=== PATIENT | female | born 1935 | race Caucasian/White ===

== ENCOUNTER 2021-01-10 17:57 | Emergency (ER) | payer OTHER, SELFPAY ==
--- NOTE | 2021-01-10 | ECG_ITS ---
Test Reason : PALPITAIONS Blood Pressure : / mmHG Vent. Rate : 063 BPM Atrial Rate : 063 BPM P-R Int : 190 ms QRS Dur : 080 ms QT Int : 444 ms P-R-T Axes : 077 -14 063 degrees QTc Int : 454 ms Sinus rhythm with Premature supraventricular complexes Biventricular hypertrophy RSR' or QR pattern in V1 suggests right ventricular conduction delay Abnormal ECG No previous ECGs available Referred By: Generic ED Physician Electronically Signed By:LONNIE LOCO MD
--- NOTE | ~2021-01-10 | XR_ITS ---
EXAMINATION: XR CHEST CLINICAL INFORMATION: Shortness of breath. COMPARISON: None TECHNIQUE: AP view of the chest was obtained. FINDINGS: Mild cardiomegaly. Clear lungs. No focal consolidation, pleural effusion or pneumothorax. No acute osseous findings. XR/XR chest 1V IMPRESSION: Clear lungs. Mild cardiomegaly.
[2021-01-10 18:25] VITALS: BP 139/75; PULSE 69; RESP 18; TEMP 36.8; O2SAT 94; BMI 17.9
[2021-01-10 19:50] LABS: Basophils Percent Auto 0.5 % (0-2); Eosinophils Absolute Auto 0.1 X10*3/uL (0.0-0.4); Eosinophils Percent Auto 1.7 % (0-4); Hematocrit 39.5 % (37-47); Hemoglobin 13.4 g/dl (12.0-16.0); Imm Gran Abs Auto 0.01 X10*3/uL (0.00-0.03); Imm Gran Pct Auto 0.2 % (0.0-0.4); Lymphocytes Absolute Auto 1.5 X10*3/uL (1.2-4.9); MANUAL DIFF FLAG SCAN; Mean Corpuscular HGB Conc 33.9 g/dl (31.0-35.0); Mean Corpuscular Hemoglobin 30.8 pg (27.0-33.0); Mean Corpuscular Volume 90.8 fL (80-98); Monocytes Percent Auto 23.2 % (2-11); Neutrophils Absolute Auto 1.6 X10*3/uL (2.0-8.3); Neutrophils Percent Auto 39.4 % (45-73); Platelet Count 180 X10*3/uL (160-400); Red Blood Count 4.35 X10*6/uL (4.20-5.50); Red Cell Distribution Width 12.6 % (11.0-16.0); SCAN SMEAR FLAG 1; White Blood Count 4.1 X10*3/uL (4.8-10.8)
[2021-01-10 20:04] LABS: Anion Gap 13 (12-20); Blood Urea Nitrogen 25 mg/dL (9-16); Calcium 9.3 mg/dL (8.4-10.2); Carbon Dioxide 28 mmol/L (22-29); Chloride 106 mmol/L (96-108); Creatinine Clr Calc Pharmacy 34.3; Estimated Glomerular Filt Rate > 60; Glucose Random 92 mg/dL (60-115); Sodium 143 mmol/L (135-145)
[2021-01-10 20:09] LABS: Troponin-I High Sensitivity 5.3 ng/L (<3.5-17.0)
[2021-01-10 20:13] LABS: SLIDE REVIEW VERIFIED
[2021-01-10 23:34] LABS: B Type Natriuretic Peptide 41 pg/mL (<100)
--- NOTE | 2021-01-10 23:35 | ED.ARRPALP ---
HPI - Arrhythmia/Palpitations General Chief Complaint: Arrhythmia/Palpitations Stated Complaint: Abnormal heart monitor Time Seen by Provider: 01/10/21 23:03 Source: patient and family (Daughter) Mode of arrival: ambulatory History of Present Illness HPI narrative: This is an 85-year-old female with significant past medical history of short-term memory loss who is brought in by her daughter after she was contacted by patient's primary care provider who stated that she needs to bring her mother in immediately for evaluation in the emergency room. Daughter states that on initial PCP visit on Wednesday that there were unknown concerns regarding her mother's heart rate and the PCP placed her on a heart monitor. Otherwise, the patient and daughter deny any recent illnesses with fevers, chills, GI symptoms and patient denies any urinary pain/burning/frequency. Patient currently denies any chest pain, racing heart, or shortness of breath. Related Data Home Medications Medication Instructions Recorded Confirmed cholecalciferol (vitamin D3) 25 25 mcg PO DAILY 04/11/20 04/11/20 mcg (1,000 unit) capsule Previous Rx's Medication Instructions Recorded lisinopril 20 1 tab PO DAILY PRN #90 tab 03/11/20 mg-hydrochlorothiazide 12.5 mg tablet Allergies Allergy/AdvReac Type Severity Reaction Status Date / Time Sulfa (Sulfonamide Allergy Unknown Verified 01/10/21 18:25 Antibiotics) Review of Systems Review of Systems: Pertinent positives and negatives as stated in HPI 10 point review of systems is otherwise negative. [facility] Past Medical History Source: nursing notes reviewed Medical History Abnormal EKG Abnormal Holter monitor finding Cognitive decline Hypertension Surgical History History of mastectomy Family History Family History Father No problems noted. Mother No problems noted. Social History Social History Alcohol intake: never Advance Directives: No Physical Exam Vital Signs: Vital Signs: Last Vital Signs Temp 98.2 F 01/10/21 18:25 Pulse 69 01/10/21 18:25 Resp 18 01/10/21 18:25 BP 139/75 01/10/21 18:25 Pulse Ox 94 01/10/21 18:25 Body Mass Index 17.9 VITAL SIGNS: Reviewed. GENERAL: Cachectic, elderly, in no acute distress. HEAD: Normocephalic/atraumatic EYES: PERRLA, EOMI intact without pain, no nystagmus OROPHARYNX: no oral lesions noted, posterior pharynx clear, dry mucosa NECK: Supple, no adenopathy LUNGS: Normal breath sounds. No adventitious sounds or accessory muscle use. SpO2<94> CARDIOVASCULAR: Regular rate and rhythm without noted murmurs, no JVD or lower extremity edema. ABDOMEN: Soft, non-tender, non-distended with bowel sounds. MUSCULOSKELETAL: No tenderness, deformities, or effusions noted on gross inspection. EXTREMITIES: No cyanosis, clubbing or edema. SKIN: Inspection of the skin reveals no rashes NEUROLOGIC: Alert and oriented x 3. Strength and sensation to light touch were grossly intact x 4. Course Course Course Narrative: 85-year-old female with history and clinical presentation apparently secondary to noted cardiac rhythm on Holter monitor. Patient is otherwise asymptomatic at this time but will evaluate for electrolyte/infectious/anemic or presence of arrhythmia. There are no focal findings. Review of all investigations negative for evidence of electrolyte abnormalities, infection, anemia, BMP is within normal limits and troponin although detectable does not correlate with EKG findings and patient is asymptomatic for chest pain. All results and findings were discussed with the daughter and patient at bedside and they were instructed to follow-up with their primary care provider and were also given a referral to see Cardiology. MDM - Arrhythmia/Palpitations Lab Data Result diagrams: 01/10/21 19:38 01/10/21 19:38 Labs: Lab Results 01/10/21 01/10/21 01/10/21 Range/Units 19:38 19:38 19:38 WBC 4.1 L (4.8-10.8) X10*3/uL RBC 4.35 (4.20-5.50) X10*6/uL Hgb 13.4 (12.0-16.0) g/dl Hct 39.5 (37-47) % MCV 90.8 (80-98) fL MCH 30.8 (27.0-33.0) pg MCHC 33.9 (31.0-35.0) g/dl RDW 12.6 (11.0-16.0) % Plt Count 180 (160-400) X10*3/uL MPV 10.0 (9.4-12.3) fL Immature Gran % (Auto) 0.2 (0.0-0.4) % Neut % (Auto) 39.4 L (45-73) % Lymph % (Auto) 35.0 (20-40) % [place] % (Auto) 23.2 H (2-11) % Eos % (Auto) 1.7 (0-4) % Baso % (Auto) 0.5 (0-2) % Lymph # (Auto) 1.5 (1.2-4.9) X10*3/uL [place] # (Auto) 1.0 (0.1-1.2) X10*3/uL Eos # (Auto) 0.1 (0.0-0.4) X10*3/uL Baso # (Auto) 0.0 (0.0-0.2) X10*3/uL Abs Immat Gran (auto) 0.01 (0.00-0.03) X10*3/uL Absolute Neuts (auto) 1.6 L (2.0-8.3) X10*3/uL Absolute Nucleated RBC 0.000 (0.0-0.012) X10*3/uL Nucleated RBC % (auto) 0.0 (0.0-0.2) /100WBC Smear Tech's Comments VERIFIED Sodium 143 (135-145) mmol/L Potassium 4.0 (3.3-5.1) mmol/L Chloride 106 (96-108) mmol/L Carbon Dioxide 28 (22-29) mmol/L Anion Gap 13 (12-20) BUN 25 H (9-16) mg/dL Creatinine 0.87 (0.5-1.4) mg/dL Estim Creat Clear Calc 34.3 Estimated GFR > 60 Random Glucose 92 (60-115) mg/dL Calcium 9.3 (8.4-10.2) mg/dL Troponin I High Sens 5.3 (<3.5-17.0) ng/L B-Natriuretic Peptide 41 (<100) pg/mL Urine Color Urine Appearance Urine pH (5.0-8.0) Ur Specific [place] (1.005-1.025) Urine Protein (NEG-TRACE) MG/DL Urine Glucose (UA) (NEG) MG/DL Urine Ketones (NEG) MG/DL Urine Blood (NEG) Urine Nitrite (NEG) Ur Leukocyte Esterase (NEG) Urine RBC (0) /HPF Urine WBC (0-4) /HPF Ur Squamous Epith Cells /LPF Urine Bacteria /LPF Hyaline Casts /LPF Urine Mucus /LPF 01/11/21 Range/Units 00:27 WBC (4.8-10.8) X10*3/uL RBC (4.20-5.50) X10*6/uL Hgb (12.0-16.0) g/dl Hct (37-47) % MCV (80-98) fL MCH (27.0-33.0) pg MCHC (31.0-35.0) g/dl RDW (11.0-16.0) % Plt Count (160-400) X10*3/uL MPV (9.4-12.3) fL Immature Gran % (Auto) (0.0-0.4) % Neut % (Auto) (45-73) % Lymph % (Auto) (20-40) % [place] % (Auto) (2-11) % Eos % (Auto) (0-4) % Baso % (Auto) (0-2) % Lymph # (Auto) (1.2-4.9) X10*3/uL [place] # (Auto) (0.1-1.2) X10*3/uL Eos # (Auto) (0.0-0.4) X10*3/uL Baso # (Auto) (0.0-0.2) X10*3/uL Abs Immat Gran (auto) (0.00-0.03) X10*3/uL Absolute Neuts (auto) (2.0-8.3) X10*3/uL Absolute Nucleated RBC (0.0-0.012) X10*3/uL Nucleated RBC % (auto) (0.0-0.2) /100WBC Smear Tech's Comments Sodium (135-145) mmol/L Potassium (3.3-5.1) mmol/L Chloride (96-108) mmol/L Carbon Dioxide (22-29) mmol/L Anion Gap (12-20) BUN (9-16) mg/dL Creatinine (0.5-1.4) mg/dL Estim Creat Clear Calc Estimated GFR Random Glucose (60-115) mg/dL Calcium (8.4-10.2) mg/dL Troponin I High Sens (<3.5-17.0) ng/L B-Natriuretic Peptide (<100) pg/mL Urine Color YELLOW Urine Appearance CLEAR Urine pH 6.0 (5.0-8.0) Ur Specific [place] 1.025 (1.005-1.025) Urine Protein TRACE (NEG-TRACE) MG/DL Urine Glucose (UA) NEG (NEG) MG/DL Urine Ketones NEG (NEG) MG/DL Urine Blood 1+ H (NEG) Urine Nitrite NEG (NEG) Ur Leukocyte Esterase NEG (NEG) Urine RBC 1-4 (0) /HPF Urine WBC 0-2 (0-4) /HPF Ur Squamous Epith Cells 1+ /LPF Urine Bacteria NONE /LPF Hyaline Casts 0-2 /LPF Urine Mucus 2+ /LPF ECG Data Attestation: I personally reviewed and interpreted this ECG as follows: Prior ECG tracings: not available for review Interpretation: Sinus rhythm, heart rate-63, no STEMI, CA/QRS/QTC are within normal limits. Discharge Plan Discharge Clinical Impression: Holter monitor, abnormal, Memory loss, short term Patient Disposition: Home, Self-Care Instructions: Heart Palpitations (ED) Additional Instructions: 1. Please follow-up with your primary care provider on Wednesday. 2. You have been provided with a Cardiology referral and should call the office on Wednesday. Prescriptions: No Action lisinopril-hydrochlorothiazide 20-12.5 mg tablet 1 tab PO DAILY PRN (Reason: hypertension) Qty: 90 RF: 8 cholecalciferol (vitamin D3) 25 mcg (1,000 unit) capsule 25 mcg PO DAILY RF: 0 Referrals: Emelina Castrejon DO [Primary Care Provider] - 2 days Mendoza Saenz MD [Physician] - 2 days (Patient currently being evaluated on Holter monitor for abnormal beats, evaluated in the ER without acute findings and patient currently under the care of Francoise Castrejon.)
[2021-01-11 00:37] LABS: Appearance Urine CLEAR; Color Urine YELLOW; Glucose Urine UA NEG (NEG); Leukocyte Esterase Urine NEG (NEG); Nitrite Urine NEG (NEG); Specific Gravity - Urine 1.025 (1.005-1.025); UACC Culture Trigger NO; Urine Blood 1+ (NEG); Urine Ketones NEG (NEG); Urine Protein TRACE MG/DL (NEG-TRACE)
[2021-01-11 00:49] LABS: Hyaline Casts Urine 0-2 /LPF; Mucus Urine 2+ /LPF; Squamous Epithelial Cell Urine 1+ /LPF; WBC Urine 0-2 /HPF (0-4)
[2021-01-11 01:18] VITALS: BP 133/58; PULSE 61; RESP 16; TEMP 36.6; O2SAT 99
== END 2021-01-11 01:21 | disposition home or self-care (01) ==
PROVIDERS: Emergency Provider Student in an Organized Health Care Education/Training Program; PCP Family Medicine
DX: R00.2 Palpitations (principal); I49.9 Cardiac arrhythmia, unspecified; R06.02 Shortness of breath; R41.3 Other amnesia; Z79.899 Other long term (current) drug therapy
CPT/HCPCS: 36415; 71045; 80048; 81001; 83880; 84484; 85025; 93005; 99284

== ENCOUNTER → 2021-01-22 09:54 | Outpatient (BNVA) | payer OTHER, SELFPAY | PROVIDERS: PCP Family Medicine; Referring Provider Family Medicine; Visit Provider Internal Medicine Cardiovascular Disease ==

== ENCOUNTER → 2021-02-19 10:57 | Outpatient (REF) | payer OTHER, SELFPAY ==
--- NOTE | 2021-02-19 11:17 | HM_ITS ---
Conclusion: 1. Patient was monitored for total period of 3 days and 6 hours 2. Baseline of normal sinus rhythm with average heart of 73 beats per minute with lowest heart rate of 45 beats per minute sinus bradycardia 3. No significant pauses noted 4. Frequent supraventricular episodes noted with longest episode of SVT lasting 1 minute and 13 seconds. 5. Total of 26,442 PVCs noted accounting for 8.77%, cardiac for frequent PVCs 6. Total of 8218 PACs noted accounting for 2.73% accounting for frequent PACs 7. Patient reported no events MTDD
== END ==
LOC: HO.CARD 10:57
PROVIDERS: Absent Provider Family Medicine; PCP Family Medicine; Visit Provider Internal Medicine Cardiovascular Disease
DX: I49.8 Other specified cardiac arrhythmias (principal); R79.89 Other specified abnormal findings of blood chemistry
CPT/HCPCS: 36415; 84443; 93242

== ENCOUNTER → 2021-03-06 09:18 | Outpatient (REF) | payer OTHER, SELFPAY ==
--- NOTE | 2021-03-06 09:22 | CA_ITS ---
Transthoracic Echocardiogram Patient (Last, First, Middle): Shona Plasencia, Gender: Female Date of : 1935 Age: 86 Procedure Date: 03/06/2021 Procedure Type: Transthoracic Echocardiogram Location: OP Height: 157.48 cm Weight: 49.9 kg BSA: 1.48 m2 Heart Rate: bpm BP: 130 / 80 mmHg Pitching Coach: REAGAN Referring MD: Mendoza Saenz MD Statement Distribution Clerk: Mendoza Saenz MD Symptoms: I49.8 - Other specified cardiac arrhythmias Study Quality: Good ECG Rhythm: Sinus Conclusions: - 1. Normal LV systolic function with impaired relaxation filling pattern 2. Mild aortic regurgitation 3. Normal RV systolic pressure 4. Mildly dilated ascending aortic root 5. No pericardial effusion Findings Left Ventricle Normal left ventricular size, thickness, and systolic function. The visually estimated ejection fraction is between 60-65%. Spectral Doppler is indicative of an impaired relaxation filling pattern. E/E prime ratio is between 8 and 15 consistent with indeterminate filling pressures. Right Ventricle Normal right ventricular cavity size and systolic function. Atria Both atria are normal in size. Interatrial shunt cannot be excluded. Aortic Valve There is mild calcification of the aortic valve. There is mild thickening of the aortic valve. There is no aortic valve stenosis. There is mild aortic valve regurgitation. Mitral Valve There is mild anterior and posterior mitral leaflet thickening. There is trace mitral valve regurgitation. There is no mitral valve stenosis. Pulmonic Valve The pulmonic valve was not well visualized. Tricuspid Valve Likely normal tricuspid valve structure and function. There is trace tricuspid valve regurgitation. The right ventricular systolic pressure is normal. The right ventricular systolic pressure is 21 mmHg. Normal right atrial pressure. There is no evidence of pulmonary hypertension. Great Vessels The pulmonary artery was not well visualized. There is mild dilatation of the sinuses of Valsalva measuring 4.00 cm. Venous The inferior vena cava is collapsed, consistent with reduced intravascular volume. Inferior vena cava flow is normal. Pericardium/Pleural There is no evidence of pericardial effusion. Prior Study Comparison No prior study available for comparison. Measurements 2D Linear Measurements IVSd: 0.74 0.6-0.9/0.6-1.0 cm LVIDd: 4.44 3.9-5.3/4.2-5.9 cm LVIDd Index: 3.00 2.4-3.2/2.2-3.1 cm/m2 LVIDs: 2.75 2.0-3.6 cm LVPWd: 0.67 0.7-1.1 cm Ao Root: 4.00 2.1-3.5 cm LA Diam: 2.90 2.7-3.8/3.0-4.0 cm LAIDs Index: 1.96 1.5-2.3 cm/m2 LV Mass: 117.29 67-162/88-224 g LV Mass Index: 79.25 43-95/49-115 g/m2 LVOT Diam: 2.30 3.0+(-)1.3 cm 2D Systolic Function EF 4C: 55.20 >55% EF 2C: 61.80 >55% EF BiP: 60.60 >55% Mitral Valve MV Pk E: 0.67 MV PK A: 0.80 MV Decel Time: 247.00 E/A: 0.80 E'Lateral: 8.05 E'Medial: 6.09 E/E' Med: 11.00 E/E' Lat: 8.30 PHT: 72.00 MVA PHT: 3.06 Decel [place]: 2.73 Aortic Valve AoV Pk Ab: 1.18 AoV Mn Ab: 0.90 AoV VTI: 0.29 AoV Pk Grad: 6.00 Aov Mn Grad: 3.00 TYLER Cont.VTI: 2.94 AI Pk Ab: 4.42 AI [place]: 1.90 LVOT LVOT Pk Ab: 0.86 LVOT Mn Ab: 0.56 LVOT VTI: 0.21 LVOT Pk Grad: 3.00 LVOT Mn Grad: 1.00 LVOT Diam: 2.30 LVOT Area: 4.15 Diastolic Function MV Pk E: 0.67 MV Pk A: 0.80 E/A: 0.80 E'Medial: 6.09 E/E' Med: 11.00 E' Laterial: 8.05 E/E' Lat: 8.30 Right Ventricle TAPSE (mm): 1.96 TVS' Ab: 9.68 Tricuspid Valve TR Pk Ab: 2.15 TR Pk Grad: 18.00 RA Press: 3.00 RVSP: 21.00 Great Vessels Aorta Ao Root-2D: 4.00 2.0-3.7 cm Sinus of Valsalva: 4.00 2.0-3.5 cm Ao Asc: 3.40 2.1-3.4 cm Updated in Other Vendor System with Status of Final Mendoza Saenz MD electronically signed on 03/06/2021 12:41:23 PM with status of Final
== END ==
LOC: HO.CARD 09:18
PROVIDERS: PCP Family Medicine; Visit Provider Internal Medicine Cardiovascular Disease
DX: I49.8 Other specified cardiac arrhythmias (principal)
CPT/HCPCS: 93306

== ENCOUNTER 2021-05-12 09:16 | Day surgery (SDC) | payer OTHER, SELFPAY ==
[2021-05-05 15:03] VITALS: BMI 18.3
--- NOTE | 2021-05-08 16:34 | MHC.SHP ---
Pre-Procedural Eval Section A Date of Service: 05/08/21 The patient is an INPATIENT: No Changes since office visit: No Cold of Flu in the past 2 weeks, No New Medical Problems, No Changes in Medication and No Patient answered all questions The History & Physical has been completed within 30 days and I have reviewed it.: Yes Section B Chief Complaint: cataract Allergies: Allergies Allergy/AdvReac Type Severity Reaction Status Date / Time Sulfa (Sulfonamide Allergy Unknown Verified 01/10/21 18:25 Antibiotics) Plan Diagnosis/Plan: Unchanged I have reviewed the history and physical and performed a pertinent physical examination on my patient. No changes have occurred unless specified.
--- NOTE | 2021-05-09 09:18 | P.CONAN_ITS ---
Documented by User: Gretta Johnson NP 05/09/21 09:22 HPI - Anesthesia Eval Consult details Narrative: 86yo F for Right Cataract Extraction IOL Insertion PCP cleared No previous cataract on record 12/2020 started on toprol by cardiol for atrial arrhythmia PMF Active Problems Active Problems: All Active Problems (Updated 05/05/21 @ 15:03 by Christina Craven RN) Cognitive decline (Acute) Atrial arrhythmia (Acute) Hypertension (Acute) Cognitive decline (Acute) Past Medical History Medical History (Updated 05/12/21 @ 11:56 by Lety Weber MD) Abnormal EKG Abnormal Holter monitor finding Arthritis Breast cancer Cognitive decline COVID-19 vaccine series completed Hypertension Short-term memory loss Family History Family History Father No problems noted. Mother No problems noted. Surgical History Surgical History (Updated 05/05/21 @ 14:37 by Christina Craven RN) H/O colonoscopy History of mastectomy Social History Social History Household Members Other:: son Are you a primary client care representative to a significant other at home: No Do you presently have visiting nurse or other home services: No Alcohol intake: never Patient Tobacco Use Status: Former Tobacco user Quit Date: quit many years ago per son Tobacco use type: Cigarette Use of substances other than those prescribed or required for medical reasons: No Have you been hit, kicked, punched, or otherwise hurt by someone within the past year? If so, by whom?: No Are you DNR?: No Advance Directives: No Advance Directives Information Provided: Yes Advance Directives on File: No Recently lost weight without trying: No Eating poorly because of decreased appetite: No Nutrition Risks: Surgical patient >75years Poor oral hygiene: No (has lower partial per son) Meds Allergies Allergy/AdvReac Type Severity Reaction Status Date / Time Sulfa (Sulfonamide Allergy Unknown Verified 01/10/21 18:25 Antibiotics) Home Medications Medication Instructions Recorded Confirmed Last Taken Type cholecalciferol (vitamin D3) 25 25 mcg PO DAILY 04/11/20 05/05/21 Unknown History mcg (1,000 unit) capsule Exam Exam Date and Time: May 09, 2021 0918 Height,Weight and Vital Signs: Height 5 ft 2 in Weight 45.359 kg Narrative Narrative: ECHO 02/2021 Conclusions: - 1.? Normal LV systolic function with impaired relaxation ? ? ? filling pattern? 2. Mild aortic regurgitation ? 3.? Normal RV systolic pressure? 4. Mildly dilated ascending aortic root? 5.? No pericardial? effusion ? Holter 01/2021 Conclusion: 1. Patient was monitored for total period of 3 days and 6 hours 2. Baseline of normal sinus rhythm with average heart of 73 beats per minute with lowest heart rate of 45 beats per minute sinus bradycardia 3. No significant pauses noted 4. Frequent supraventricular episodes noted with longest episode of SVT lasting 1 minute and 13 seconds. 5. Total of 26,442 PVCs noted accounting for 8.77%, cardiac for frequent PVCs 6. Total of 8218 PACs noted accounting for 2.73% accounting for frequent PACs 7. Patient reported no events Documented by User: Lety Weber MD 05/12/21 11:59 [facility] Past Medical History Medical History (Updated 05/12/21 @ 11:56 by Lety Weber MD) Abnormal EKG Abnormal Holter monitor finding Arthritis Breast cancer Cognitive decline COVID-19 vaccine series completed Hypertension Short-term memory loss Family History Family History Father No problems noted. Mother No problems noted. Family history of problems with anesthesia: No Surgical History Surgical History (Updated 05/05/21 @ 14:37 by Christina Craven RN) H/O colonoscopy History of mastectomy History of Problems with Anesthesia: No Social History Social History Household Members Other:: son Are you a primary client care representative to a significant other at home: No Do you presently have visiting nurse or other home services: No Alcohol intake: never Patient Tobacco Use Status: Former Tobacco user Quit Date: quit many years ago per son Tobacco use type: Cigarette Use of substances other than those prescribed or required for medical reasons: No Have you been hit, kicked, punched, or otherwise hurt by someone within the past year? If so, by whom?: No Are you DNR?: No Advance Directives: No Advance Directives Information Provided: Yes Advance Directives on File: No Recently lost weight without trying: No Eating poorly because of decreased appetite: No Nutrition Risks: Surgical patient >75years Poor oral hygiene: No (has lower partial per son) Meds Allergies Allergy/AdvReac Type Severity Reaction Status Date / Time Sulfa (Sulfonamide Allergy Unknown Verified 01/10/21 18:25 Antibiotics) Home Medications Medication Instructions Recorded Confirmed Last Taken Type cholecalciferol (vitamin D3) 25 25 mcg PO DAILY 04/11/20 05/05/21 Unknown History mcg (1,000 unit) capsule Exam Height,Weight and Vital Signs: Height 5 ft 2 in Weight 45.359 kg Vital Signs Temp Pulse Resp BP Pulse Ox 05/12/21 11:05 97.9 F 57 16 151/80 H 94 Narrative Narrative: ECHO 02/2021 Conclusions: - 1.? Normal LV systolic function with impaired relaxation ? ? ? filling pattern. EF 60-65%? 2. Mild aortic regurgitation ? 3.? Normal RV systolic pressure? 4. Mildly dilated ascending aortic root? 5.? No pericardial? effusion ? Holter 01/2021 Conclusion: 1. Patient was monitored for total period of 3 days and 6 hours 2. Baseline of normal sinus rhythm with average heart of 73 beats per minute with lowest heart rate of 45 beats per minute sinus bradycardia 3. No significant pauses noted 4. Frequent supraventricular episodes noted with longest episode of SVT lasting 1 minute and 13 seconds. 5. Total of 26,442 PVCs noted accounting for 8.77%, cardiac for frequent PVCs 6. Total of 8218 PACs noted accounting for 2.73% accounting for frequent PACs 7. Patient reported no events Airway Mallampati Class: II TM Dist: >3cm Neck ROM: Full Partial: Upper Heart: RRR ? murmur. Occasional extra beats Lungs: CTAB Assessment and Plan Assessment Anesthesia Assessment: Anesthesia Plan Discussed and Chart Reviewed Final Anesthetic Review Family History of Problems with Anesthesia: No History of Problems with Anesthesia: No NPO: Yes ASA Class: III Final Preanesthetic Review: No Changes in Pt Med Stat, Meds/Allgs Chart Reviewed, Consent Obtained/Reviewed and Anes Risks/Benef Reviewed Patient Risk: Intermediate Procedure Risk: Low Assessment/Block/Sedation in SS: Assess/Block/Sedation-SS Anesthetic Plan Anesthetic Plan: MAC: Disposition: Standard PACU
[2021-05-12 11:05] VITALS: BP 151/80; PULSE 57; RESP 16; TEMP 36.6; O2SAT 94
[2021-05-12] MEDS: Tetracaine HCl/PF 0.5% Oph Sol 4 ML DROPS 1 DROP EYE-RIGHT (11:11)
[2021-05-12] MEDS: Tropicamide 1 % Ophth Sol 3 ML BTL 1 DROP EYE-RIGHT ×3 (11:12→11:20)
[2021-05-12] MEDS: Phenylephrine HCL 2.5% Oph SoL 2 ML BOTTLE 1 DROP EYE-RIGHT ×3 (11:14→11:22)
[2021-05-12] MEDS: Lactated Ringers 500 ML 50 ML IV (11:20)
--- NOTE | 2021-05-12 12:03 | HO.PNOPHT ---
Ophthalmology Procedure Procedure Date of Service: 05/12/21 Ophthalmology Viscoelastic: Healkeiko Bolañost Dual Pack Pro Ophthalmology Lenses: TECNIS [id number] (22.5) Procedure Notes: PREOPERATIVE DIAGNOSIS: Decreased visual acuity right eye secondary to cataract POSTOPERATIVE DIAGNOSIS: Same PROCEDURE: Right cataract extraction with intraocular lens insertion SURGEON: Igor Ware M.D. ANESTHESIA: Topical/MAC ESTIMATED BLOOD LOSS: None COMPLICATIONS: None After obtaining informed consent, the patient was brought to the operating room suite and placed in the supine position. After adequate sedation per anesthesia, topical drops of Tetracaine were given to the right eye. The eye was then prepped and draped in the usual sterile fashion. The operating room microscope was then positioned over the operative eye and a lid speculum placed. A paracentesis was created. Viscoelastic was then instilled into the anterior chamber. A three plane incision was then created temporally, utilizing a 2.85 mm keratome. Capsulotomy forceps were then utilized to create a circular tear capsulotomy. Hydrodissection and hydrodelineation were carried out until adequate mobilization of the nucleus occurred. Phacoemulsification was then utilized to remove the dense central nucleus followed by removal of the cortical material utilizing the automated aspiration irrigation unit. Viscoelastic was instilled into the posterior capsular bag followed by placement of a posterior chamber intraocular lens without difficulty. The residual Viscoelastic was then removed utilizing the automated IA machine. The wound was checked and found to be watertight. The patient tolerated the procedure well and the lid speculum was removed. Intracameral injection of Vigamox 0.1 mL followed by a subtenon injection of Kenalog-40 0.2 mL were administered. The patient will be seen in the a.m.
[2021-05-12 12:31] VITALS: BP 160/92; PULSE 56; RESP 18; TEMP 36.3; O2SAT 96
[2021-05-12 12:45] VITALS: BP 146/76; PULSE 50; RESP 16; O2SAT 96
== END 2021-05-12 13:00 | disposition home or self-care (01) ==
PROVIDERS: PCP Family Medicine; Visit Provider Ophthalmology
PROC: (CPT 66985; principal; 2021-05-12 12:20)
DX: H25.11 Age-related nuclear cataract, right eye (principal); H52.4 Presbyopia; I10 Essential (primary) hypertension; F03.90 Unspecified dementia, unspecified severity, without behavioral disturbance, psychotic disturbance, mood disturbance, and anxiety; L40.9 Psoriasis, unspecified; Z79.899 Other long term (current) drug therapy; Z88.2 Allergy status to sulfonamides; Z87.891 Personal history of nicotine dependence
CPT/HCPCS: 66984; J2405; J3010; J3300; V2632

== ENCOUNTER 2021-05-26 09:48 | Day surgery (SDC) | payer OTHER, SELFPAY ==
[2021-05-05 15:07] VITALS: BMI 18.3
--- NOTE | 2021-05-22 12:57 | MHC.SHP ---
Pre-Procedural Eval Section A Date of Service: 05/22/21 The patient is an INPATIENT: No Changes since office visit: No Cold of Flu in the past 2 weeks, No New Medical Problems, No Changes in Medication and No Patient answered all questions The History & Physical has been completed within 30 days and I have reviewed it.: Yes Section B Chief Complaint: cataract Allergies: Allergies Allergy/AdvReac Type Severity Reaction Status Date / Time Sulfa (Sulfonamide Allergy Unknown Verified 01/10/21 18:25 Antibiotics) Plan Diagnosis/Plan: Unchanged I have reviewed the history and physical and performed a pertinent physical examination on my patient. No changes have occurred unless specified.
--- NOTE | 2021-05-22 13:53 | P.CONAN_ITS ---
Documented by User: Gretta Johnson NP 05/22/21 13:55 HPI - Anesthesia Eval Consult details Narrative: 86yo F for Left Cataract Extraction IOL Insertion PCP cleared Right eye done 05/12/21 with MAC: Fent 50, Zofran 4 PMFSH Active Problems Active Problems: All Active Problems (Updated 05/12/21 @ 11:56 by Lety Weber MD) Cognitive decline (Acute) Atrial arrhythmia (Acute) Hypertension (Acute) Cognitive decline (Acute) Past Medical History Medical History (Updated 05/12/21 @ 11:56 by Lety Weber MD) Abnormal EKG Abnormal Holter monitor finding Arthritis Breast cancer Cognitive decline COVID-19 vaccine series completed Hypertension Short-term memory loss Family History Family History Father No problems noted. Mother No problems noted. Family history of problems with anesthesia: No Surgical History Surgical History (Updated 05/05/21 @ 14:37 by Christina Craven RN) H/O colonoscopy History of mastectomy History of Problems with Anesthesia: No Social History Social History Household Members Other:: son Are you a primary workforce investment act career manager to a significant other at home: No Do you presently have visiting nurse or other home services: No Alcohol intake: never Patient Tobacco Use Status: Former Tobacco user Quit Date: quit many years ago per son Tobacco use type: Cigarette Use of substances other than those prescribed or required for medical reasons: No Have you been hit, kicked, punched, or otherwise hurt by someone within the past year? If so, by whom?: No Are you DNR?: No Advance Directives Information Provided: Yes (will bring copy of HCP DOS) Advance Directives on File: No Recently lost weight without trying: No Eating poorly because of decreased appetite: No Nutrition Risks: Surgical patient >75years Poor oral hygiene: No (lower partial per son) Meds Allergies Allergy/AdvReac Type Severity Reaction Status Date / Time Sulfa (Sulfonamide Allergy Unknown Verified 05/26/21 10:16 Antibiotics) Home Medications Medication Instructions Recorded Confirmed Last Taken Type cholecalciferol (vitamin D3) 25 25 mcg PO DAILY 04/11/20 05/05/21 Unknown History mcg (1,000 unit) capsule Exam Exam Date and Time: May 22, 2021 1353 Height,Weight and Vital Signs: Height 5 ft 2 in Weight 45.359 kg Assessment and Plan Assessment Anesthesia Assessment: Chart Reviewed Final Anesthetic Review Family History of Problems with Anesthesia: No History of Problems with Anesthesia: No Documented by User: Elicia Avelar MD 05/26/21 10:41 [facility] Past Medical History Medical History (Updated 05/12/21 @ 11:56 by Lety Weber MD) Abnormal EKG Abnormal Holter monitor finding Arthritis Breast cancer Cognitive decline COVID-19 vaccine series completed Hypertension Short-term memory loss Family History Family History Father No problems noted. Mother No problems noted. Surgical History Surgical History (Updated 05/05/21 @ 14:37 by Christina Craven RN) H/O colonoscopy History of mastectomy Social History Social History Household Members Other:: son Are you a primary workforce investment act career manager to a significant other at home: No Do you presently have visiting nurse or other home services: No Alcohol intake: never Patient Tobacco Use Status: Former Tobacco user Quit Date: quit many years ago per son Tobacco use type: Cigarette Use of substances other than those prescribed or required for medical reasons: No Have you been hit, kicked, punched, or otherwise hurt by someone within the past year? If so, by whom?: No Are you DNR?: No Advance Directives Information Provided: Yes (will bring copy of HCP DOS) Advance Directives on File: No Recently lost weight without trying: No Eating poorly because of decreased appetite: No Nutrition Risks: Surgical patient >75years Poor oral hygiene: No (lower partial per son) Meds Allergies Allergy/AdvReac Type Severity Reaction Status Date / Time Sulfa (Sulfonamide Allergy Unknown Verified 05/26/21 10:16 Antibiotics) Home Medications Medication Instructions Recorded Confirmed Last Taken Type cholecalciferol (vitamin D3) 25 25 mcg PO DAILY 04/11/20 05/05/21 Unknown History mcg (1,000 unit) capsule Exam Airway Mallampati Class: II TM Dist: >3cm Neck ROM: Full Heart: rrr Lungs: cta Assessment and Plan Assessment Anesthesia Assessment: Anesthesia Plan Discussed and Chart Reviewed Final Anesthetic Review NPO: Yes ASA Class: III Final Preanesthetic Review: No Changes in Pt Med Stat, Meds/Allgs Chart Reviewed and Consent Obtained/Reviewed Patient Risk: Intermediate Procedure Risk: Intermediate Anesthetic Plan Anesthetic Plan: MAC: Disposition: Standard PACU
[2021-05-26 10:18] VITALS: BP 164/85; PULSE 68; RESP 16; TEMP 36.2; O2SAT 97
[2021-05-26] MEDS: Tetracaine HCl/PF 0.5% Oph Sol 4 ML DROPS 1 DROP EYE-LEFT (10:30)
[2021-05-26] MEDS: Lactated Ringers 500 ML 50 ML IV (10:31)
[2021-05-26] MEDS: Tropicamide 1 % Ophth Sol 3 ML BTL 1 DROP EYE-LEFT ×3 (10:31→10:43)
[2021-05-26] MEDS: Phenylephrine HCL 2.5% Oph SoL 2 ML BOTTLE 1 DROP EYE-LEFT ×3 (10:35→10:47)
--- NOTE | 2021-05-26 11:41 | HO.PNOPHT ---
Ophthalmology Procedure Procedure Date of Service: 05/26/21 Ophthalmology Viscoelastic: [employer] Duet Dual Pack Pro Ophthalmology Lenses: TECREBECCA [id number] (23) Procedure Notes: PREOPERATIVE DIAGNOSIS: Decreased visual acuity left eye secondary to cataract POSTOPERATIVE DIAGNOSIS: Same PROCEDURE: Left cataract extraction with intraocular lens insertion SURGEON: Igor Ware M.D. ANESTHESIA: Topical/MAC ESTIMATED BLOOD LOSS: None COMPLICATIONS: None After obtaining informed consent, the patient was brought to the operation room suite and placed in the supine position. After adequate sedation per anesthesia, topical drops of Tetracaine were given to the left eye. The eye was then prepped and draped in the usual sterile fashion. The operating room microscope was then positioned over the operative eye and a lid speculum placed. A paracentesis was created. Viscoelastic was then instilled into the anterior chamber. A three plane incision was then created temporally, utilizing a 2.85 mm keratome. Capsulotomy forceps were then utilized to create a circular tear capsulotomy. Hydrodissection and hydrodelineation were carried out until adequate mobilization of the nucleus occurred. Phacoemulsification was then utilized to remove the dense central nucleus followed by removal of the cortical material utilizing the automated aspiration irrigation unit. Viscoat elastic was instilled into the posterior capsular bag followed by placement of a posterior chamber intraocular lens without difficulty. The residual Viscoat elastic was then removed utilizing the automated IA machine. The wound was check and found to be watertight. The patient tolerated the procedure well and the lid speculum was removed. Intracameral injection of Vigamox 0.1 mL followed by a subtenon injection of Kenalog-40 0.2 mL were administered. The patient will be seen in the a.m.
[2021-05-26 12:07] VITALS: BP 142/86; PULSE 74; RESP 16; TEMP 36.4; O2SAT 94
== END 2021-05-26 12:17 | disposition home or self-care (01) ==
PROVIDERS: PCP Family Medicine; Visit Provider Ophthalmology
PROC: (CPT 66985; principal; 2021-05-26 12:00)
DX: H25.12 Age-related nuclear cataract, left eye (principal); H52.4 Presbyopia; I10 Essential (primary) hypertension; L40.9 Psoriasis, unspecified; F03.90 Unspecified dementia, unspecified severity, without behavioral disturbance, psychotic disturbance, mood disturbance, and anxiety; Z79.899 Other long term (current) drug therapy; Z88.8 Allergy status to other drugs, medicaments and biological substances; Z87.891 Personal history of nicotine dependence
CPT/HCPCS: 66984; J2250; J2405; J3010; J3300; V2632

== ENCOUNTER 2023-03-28 14:18 | Inpatient (IN) | payer OTHER, SELFPAY ==
[2023-03-28] VITALS (9 sets, daily range): BP systolic 113–172; BP diastolic 66–122; PULSE 93–126; RESP 16–31; TEMP 36.8–39.1; O2SAT 79–97; BMI 21.9
--- NOTE | ~2023-03-28 | XR_ITS ---
EXAMINATION: PORTABLE CHEST 1 VIEW CLINICAL INFORMATION: SOB. COMPARISON: 01/10/2021. TECHNIQUE: Portable frontal view of the chest was obtained. FINDINGS: The lungs are hyperinflated with flattening to the hemidiaphragms. Central vascular prominence likely represents a component of chronic pulmonary arterial hypertension similar to the prior study. No superimposed focal infiltrate, effusion, edema, or pneumothorax. Cardiac and mediastinal silhouettes are within normal limits for size with a mildly tortuous aorta. No acute bony abnormality seen. XR/XR chest 1V IMPRESSION: Hyperinflated with chronic appearing changes similar to the prior study.
--- NOTE | ~2023-03-28 | CT_ITS ---
EXAMINATION: CT HEAD WITHOUT CONTRAST CT CERVICAL SPINE WITHOUT CONTRAST CLINICAL INFORMATION: Fall. COMPARISON: None TECHNIQUE: Contiguous axial imaging was performed from the skull base to vertex without intravenous administration of contrast. Contiguous axial imaging was performed from the upper chest through the skull base without intravenous administration of contrast. Coronal and sagittal reformats were obtained at the acquisition workstation. This CT examination was performed using dose optimization techniques as appropriate, variously including the following: *Automated exposure control *Adjustment of mA and/or kV according to patient size (this includes techniques or standardized protocols for targeted exams where dose is matched to indication/reason for exam; i.e. extremities or head) *Use of iterative reconstruction technique DLP: 509 and 215 mGy-cm FINDINGS: Evaluation is limited due to patient's positioning and motion. Head: Small age indeterminate hypodensities in the bilateral basal ganglia, for instance measuring 7 mm in the right thalamus (7:37). Ectasia of the intracranial arteries, more prominent in the basilar artery. There is no evidence of acute intracranial hemorrhage or edematous territorial infarction. Scattered hypoattenuation in the periventricular and deep white matter are consistent with moderate microangiopathy. Millan-white matter differentiation is preserved. Proportional prominence of the ventricles and sulcal spaces. No evidence for obstructive hydrocephalus. No abnormal mass effect or midline shift. No extra-axial fluid collections. No acute soft tissue or osseous abnormalities. Multifocal partial opacification of the paranasal sinuses with air-fluid levels in the maxillary sinuses and sphenoid sinuses. The mastoids and middle ear cavities are clear. Cervical Spine: The atlantooccipital and atlantoaxial articulations remain well aligned. No evidence of acute compression deformity or traumatic subluxation. Moderate to severe multilevel cervical spondylosis with intervertebral disc height loss, osteophytes and uncovertebral/facet hypertrophy with near fused facets at several levels leading to various degrees of neural foraminal encroachment and central canal stenosis. There is no prevertebral soft tissue swelling. The thyroid gland and remaining cervical soft tissues are normal in appearance. The lung apices demonstrate no abnormalities. CT/CT cervical spine wo IV con IMPRESSION: 1. Evaluation is limited due to patient's positioning and motion. 2. Small age-indeterminate hypodensities in the bilateral basal ganglia. If an acute cerebrovascular accident is suspected, further evaluation with an MR of the brain is recommended. 3. No acute intracranial hemorrhage or edematous territorial infarction. 4. Background of chronic microangiopathy and generalized cerebral volume loss. 5. Multifocal ectasia of the intracranial arteries, more noticeable at the tip of the basilar artery. 6. No evidence of acute fracture or traumatic subluxation in the cervical spine. 7. Moderate to severe cervical spondylosis. 8. Paranasal sinus disease. Correlate clinically for acute sinusitis.
--- NOTE | ~2023-03-28 | CT_ITS ---
EXAMINATION: CT CHEST WITHOUT CONTRAST CLINICAL INFORMATION: Evaluate for pneumonia. COMPARISON: None available. TECHNIQUE: Multidetector volumetric CT imaging of the chest was done. Axial MIP volume rendering provided. Sagittal and coronal reformatted images were obtained. This CT examination was performed using dose optimization techniques as appropriate, variously including the following: *Automated exposure control *Adjustment of mA and/or kV according to patient size (this includes techniques or standardized protocols for targeted exams where dose is matched to indication/reason for exam; i.e. extremities or head) *Use of iterative reconstruction technique DLP: 193 mGy-cm FINDINGS: LUNGS: Multifocal airspace opacities, for example consolidative opacities in the lingula and right lower lobe and more groundglass appearing opacities in the right upper lobe. Multifocal tree-in-bud nodules, for instance as visualized in the right upper lobe image 193 series 5. Additionally numerous more isolated solid pulmonary nodules measuring up to 4 mm in diameter. Bronchial wall thickening with scattered mucus plugging. Central airways are patent. MEDIASTINUM: Normal heart size. No pericardial effusion. No mediastinal lymphadenopathy. Evaluation of the hilar structures is limited in the absence of intravenous contrast. 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 CORONARY ARTERY CALCIFICATION: Multivessel coronary artery calcifications. PLEURA: Trace amount of right-sided pleural fluid. No pneumothorax. AXILLA: No lymphadenopathy. UPPER ABDOMEN: No significant abnormality in this limited noncontrast examination. OSSEOUS STRUCTURES: Mild compression deformity of the T12 vertebral body. Thoracic spondylosis. CT/CT chest wo IV con IMPRESSION: 1. Multifocal airspace opacities combination of consolidative, groundglass and tree-in-bud with scattered pulmonary nodules suspicious for an infectious/inflammatory process such as atypical pneumonia with small airways disease. Trace amount of right-sided pleural fluid. Recommend short-term follow-up CT chest to ensure appropriate resolution and rule out underlying malignancy nodules. 2. 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 3. Mild compression deformity of the T12 vertebral body, age indeterminate. Correlate with point tenderness.
--- NOTE | 2023-03-28 16:35 | ED_ITS ---
HPI - General Adult General Chief complaint: Dyspnea Stated complaint: Fall? Trouble breathing Time Seen by Provider: 03/28/23 16:58 Source: patient and family (patient's daughter) Mode of arrival: wheelchair Limitations: other (patient has dementia at baseline) History of Present Illness HPI narrative: Patient is an 88 year old assigned female at with a history of dementia and HTN presenting to the emergency department today with worsening weakness and a cough. Patient's daughter states that over the last few days the patient has been having worsening shortness of breath, weakness, and a cough. Patient's daughter states that the patient does not take blood pressure medications anymore. Patient denies any dizziness, lightheadedness, abdominal pain, nausea, vomiting, fever, chills, blurry vision, double vision, loss of vision, chest pain, back pain, night sweats, pain with urination, increased urinary frequency, increased urinary urgency, blood in her urine or stool, syncope or a near syncopal episode, recent trauma or falls, bowel incontinence, bladder incontinence, bowel retention, bladder retention, or any other complaints at this time. Onset (ago): day(s) (4) Severity: moderate Severity scale (1-10): 4 Relieving factors: none Exacerbating factors: none Associated symptoms: cough, shortness of breath and weakness Treatments prior to arrival: none Related Data Home Medications Medication Instructions Recorded Confirmed cholecalciferol (vitamin D3) 25 25 mcg PO DAILY 04/11/20 05/05/21 mcg (1,000 unit) capsule Previous Rx's Medication Instructions Recorded metoprolol succinate 50 mg 50 mg PO DAILY #90 tabs 03/11/21 tablet,extended release 24 hr Allergies Allergy/AdvReac Type Severity Reaction Status Date / Time Sulfa (Sulfonamide Allergy Unknown Verified 03/28/23 16:36 Antibiotics) Review of Systems 2 Constitutional: Constitutional: Reports no additional constitutional complaints, Denies chills, Denies fever(s), Denies night sweats and Reports weakness Eyes: Eyes: Reports no additional eye complaints, Denies blurry vision, Denies change in vision, Denies diplopia, Denies eye discharge, Denies loss of vision and Denies eye pain ENT: Denies dizziness Cardiovascular: Cardiovascular: Reports no additional cardiovascular complaints, Denies chest pain, Denies lightheadedness, Denies Loss of Consciousness and Reports dyspnea Respiratory: Respiratory: Reports no additional respiratory complaints, Reports cough and Reports dyspnea Gastrointestinal: Gastrointestinal: Reports no additional gastrointestinal complaints, Denies abdominal pain, Denies melena, Denies hematochezia, Denies change in bowel habits and Denies change in stool character Genitourinary: Genitourinary: Denies hematuria, Denies urinary frequency, Denies dysuria, Denies urinary incontinence, Denies urinary hesitancy and Denies urinary urgency Musculoskeletal: Musculoskeletal: Reports no additional musculoskeletal complaints, Denies numbness and Denies tingling Neurologic: Reports confusion (patient's baseline), Denies dizziness, Denies loss of vision, Reports memory loss (patient's baseline), Denies numbness, Denies tingling and Reports weakness Psychiatric: Psychiatric: Reports no additional psychiatric complaints, Reports confusion (patient's baseline) and Reports memory loss (patient's baseline) Endocrine: Endocrine: Reports no additional endocrine complaints Hematologic/Lymphatic: Hematologic/Lymphatic: Reports no additional hematologic/lymphatic complaints Allergic/Immunologic: Allergic/Immunologic: Reports no additional allergic/immunologic complaints [facility] Past Medical History Attestation statement: The following information was validated with the patient. (all information validated with the patient's daughter) Source: old records reviewed, obtained from family (patient's daughter provided additional history and confirmed the history provided by the patient.) and nursing notes reviewed Medical History Arthritis COVID-19 vaccine series completed Short-term memory loss Breast cancer Abnormal EKG Abnormal Holter monitor finding Hypertension Cognitive decline Surgical History H/O colonoscopy History of mastectomy Family History Family History Father No problems noted. Mother No problems noted. Social History Social History Household Members Other:: son Are you a primary director of health care marketing to a significant other at home: No Do you presently have visiting nurse or other home services: No Alcohol intake: never Patient Tobacco Use Status: Former Tobacco user Quit Date: quit many years ago per son Tobacco use type: Cigarette Smoked in Last 30 Days: No Use of substances other than those prescribed or required for medical reasons: No Advance Directives: Yes Advance Directives on File: Yes Advance Directives Date on File: 05/12/21 Physical Exam ED Vital Signs: Vital Signs - 24 hr 03/28/23 16:36 03/28/23 16:43 03/28/23 17:00 Temperature 98.2 F Pulse Rate 93 102 H Respiratory Rate 16 31 H Blood Pressure 146/95 H Pulse Oximetry 79 L 90 L Oxygen Delivery Method Room Air Nasal Cannula Oxygen Flow Rate 4 03/28/23 17:18 03/28/23 17:57 03/28/23 19:09 Temperature 98.3 F 100.4 F Pulse Rate 111 H 126 H Respiratory Rate 30 H 27 H Blood Pressure 163/105 H 172/122 H Pulse Oximetry 88 L 94 94 Oxygen Delivery Method Room Air Nasal Cannula Nasal Cannula Oxygen Flow Rate 4 4 03/28/23 20:11 03/28/23 21:16 03/28/23 22:16 Temperature 102.3 F H 98.5 F Pulse Rate 120 H 117 H 93 Respiratory Rate 20 22 H 25 H Blood Pressure 122/74 113/66 Pulse Oximetry 97 95 Oxygen Delivery Method Nasal Cannula Nasal Cannula Oxygen Flow Rate 5 5 BMI result Body Mass Index 21.9 Const General: confusion (patient's baseline) Nutritional Appearance: well nourished Orientation/consciousness: oriented to person, No oriented to place, No oriented to time and confusion (patient's baseline) Limitations: no limitations HENMT Head: Yes normal to inspection and Yes atraumatic Ears: hearing grossly normal bilaterally and external ears normal General nose exam: Normal external nose present, no nasal discharge noted and no epistaxis Face and sinus: Yes normal facial exam, No abrasion and No laceration Mouth: Normal oral and palatal mucosa present, no drooling and no muffled voice Eyes General: appearance normal, both eyes and all related structures Periorbital: periorbital findings normal Eyelids: Yes eyelids normal Conjunctivae: conjunctivae normal Pupils: Equal, round and reactive pupils present EOM: EOMs intact bilaterally Neck Neck: Yes normal visual inspection, Yes full ROM and Yes no lymphadenopathy Chest Chest palpation & inspection: normal inspection of the chest Resp Effort & Inspection: able to speak in complete sentences and labored Auscultation: diminished lung sounds bilateral Cardio Rate: tachycardic GI Inspection: Yes normal to inspection Neuro General: oriented to person, No oriented to place, No oriented to time and confusion (patient's baseline) Cranial nerves: Yes Equal, round and reactive pupils present Extrem General: Yes normal to inspection, Yes full ROM and Yes capillary refill normal Psych Appearance: grossly normal Mental Status: mental status grossly normal Affect: normal affect Attitude: cooperative Thought process: Normal thought process present Thought content: Normal thought content present Insight: Good insight present (Psych) Course Course Course Narrative: This is a rapid medical exam: Additional HPI, ROS, PE not included below will be deferred to primary provider. Patient is an 88-year-old female with history of atrial arrythmia, cognitive decline, HTN presenting to the ED with Son states he heard a loud crashing noise in the bathroom the other night. Patient denied fall at that time and walked back to bed. Today patient has been unable to get up from a seated position. Patient noted to be hypoxic to 79% -80% on room air in triage, charger operator helper notified and patient brought directly to room in main ED. Plan: viral swabs, labs, CXR, CT head and neck Medications Administered Discontinued Medications Generic Name Dose Route Start Last Admin Trade Name Georgeq PRN Reason Stop Dose Admin Acetaminophen 975 mg 03/28/23 20:52 03/28/23 20:58 Acetaminophen 325 Mg Tablet PO 03/28/23 20:53 975 mg ONCE ONE Administration Albuterol Sulfate 2.5 mg/ 0 mg 03/28/23 16:55 03/28/23 16:59 Albuterol/Ipratropium 3 ml INHALE 03/28/23 16:56 1 dose ONCE ONE Administration Albuterol Sulfate 2.5 mg/ 0 mg 03/28/23 20:08 03/28/23 20:11 Albuterol/Ipratropium 3 ml INHALE 03/28/23 20:09 1 dose ONCE ONE Administration Ceftriaxone Sodium 1 gm/ 50 mls @ 100 mls/hr 03/28/23 19:14 03/28/23 21:15 Sodium Chloride IV 03/28/23 19:43 Infused ONCE ONE Infusion Methylprednisolone Sodium Succinate 60 mg 03/28/23 18:54 03/28/23 19:36 Methylprednisolone Sod Succ 125 Mg/2 Ml Vial IVPUSH 03/28/23 18:55 60 mg ONCE ONE Administration Medical Decision Making Medical Decision Making MDM Narrative: Patient is an 88 year old assigned female at with a history of dementia and HTN presenting to the emergency department today with weakness and shortness of breath. Patient's physical exam was as noted in the physical exam portion of this note. Patient's blood work showed an elevated WBC count at 12.4, BUN 31, bili 1.6, AST 56, ALT 39, first trop was 29.4 with a repeat of 31.0. Patient's urine is pending at this time. Patient's EKG was unremarkable. Patient's chest x-ray showed no acute process. Patient's head CT showed no acute process. Patient's c-spine CT showed evidence of possible sinusitis. Patient's clinical presentation is not consistent with sepsis (@1920). Patient desaturated to 88% on room air while in the department. Patient was started on oxygenation and with 4 liters via NC, patient was brought up to 93-96%. I spoke with the hospitalist team who agreed to admission. I explained my physical exam findings as well as all test results to the patient and the patient's daughter. I answered all questions asked by the patient and the patient's daughter. Patient and the patient's daughter verbalized agreement and understanding with this treatment plan and admission. Differential Diagnosis Differential Diagnoses: The differential diagnosis associated with the presentation includes Viral illness Hypoxia Pneumonia UTI Sinusitis Admission/Observation Consideration of admission/observation: Escalation of care including admission/observation considered Patient admitted Consult Healthcare Provider Management of the patient was discussed with: Hospitalist (agreed to admission) Lab Data [facility] Lab Attestation statement: I reviewed the patient's lab results. My interpretation of these results are in the MDM Rationale portion of this note. 03/28/23 17:57 03/28/23 17:57 Labs: Lab Results 03/28/23 03/28/23 Range/Units 17:57 19:32 WBC 12.4 H (4.8-10.8) X10*3/uL RBC 4.58 (4.20-5.50) X10*6/uL Hgb 13.5 (12.0-16.0) g/dl Hct 40.0 (37.0-47.0) % MCV 87.3 (80.0-98.0) fL MCH 29.5 (27.0-33.0) pg MCHC 33.8 (31.0-35.0) g/dl RDW 13.1 (11.0-16.0) % Plt Count 159 L (160-400) X10*3/uL MPV 9.9 (9.4-12.3) fL Immature Gran % (Auto) 0.9 H (0.0-0.4) % Neut % (Auto) 69.7 (45-73) % Lymph % (Auto) 8.1 L (20-40) % Payne % (Auto) 21.0 H (2-11) % Eos % (Auto) 0.1 (0-4) % Baso % (Auto) 0.2 (0-2) % Lymph # (Auto) 1.0 L (1.2-4.9) X10*3/uL Payne # (Auto) 2.6 H (0.1-1.2) X10*3/uL Eos # (Auto) 0.0 (0.0-0.4) X10*3/uL Baso # (Auto) 0.0 (0.0-0.2) X10*3/uL Abs Immat Gran (auto) 0.11 H (0.00-0.03) X10*3/uL Absolute Neuts (auto) 8.7 H (2.0-8.3) x10*3/uL Absolute Nucleated RBC 0.000 (0.0-0.012) X10*3/uL Nucleated RBC % (auto) 0.0 (0.0-0.2) /100WBC Smear Tech's Comments VERIFIED PT 12.8 (11.1-13.3) SEC INR 1.1 (0.9-1.1) Sodium 145 (135-145) mmol/L Potassium 3.4 (3.3-5.1) mmol/L Chloride 106 (96-108) mmol/L Carbon Dioxide 23 (22-29) mmol/L Anion Gap 19 (12-20) BUN 31 H (9-16) mg/dL Creatinine 0.95 (0.5-1.4) mg/dL Estim Creat Clear Calc 33.6 Estimated GFR 56 Random Glucose 151 H (60-115) mg/dL Lactic Acid 1.6 (0.5-2.0) mmol/L Calcium 9.7 (8.4-10.2) mg/dL Total Bilirubin 1.6 H (0.0-1.0) mg/dL AST 56 H (5-31) U/L ALT 39 H (0-31) U/L Alkaline Phosphatase 88 (39-117) U/L Troponin I High Sens 29.4 H 31.0 H (<3.5-17.0) ng/L B-Natriuretic Peptide 87 (<100) pg/mL Total Protein 7.9 (6.5-8.0) g/dL Albumin 4.3 (3.5-5.0) g/dL Influenza Type A (PCR) NEGATIVE (Negative) Influenza Type B (PCR) NEGATIVE (Negative) RSV RNA Qual (PCR) NEGATIVE (Negative) SARS-CoV-2 RNA (RT-PCR) NEGATIVE (Negative) Independent Interpretation I performed an independent interpretation of an: EKG, Plain X-Ray and CT Scan Interpretation: My interpretation is in agreement with the radiologist's impression of these imaging studies. - EXAMINATION: PORTABLE CHEST 1 VIEW CLINICAL INFORMATION: SOB. COMPARISON: 01/10/2021. TECHNIQUE: Portable frontal view of the chest was obtained. FINDINGS: The lungs are hyperinflated with flattening to the hemidiaphragms. Central vascular prominence likely represents a component of chronic pulmonary arterial hypertension similar to the prior study. No superimposed focal infiltrate, effusion, edema, or pneumothorax. Cardiac and mediastinal silhouettes are within normal limits for size with a mildly tortuous aorta. No acute bony abnormality seen. XR/XR chest 1V IMPRESSION: Hyperinflated with chronic appearing changes similar to the prior study. Dictated By: Ge Marquis MD Signed By: Electronically signed by Ge Marquis MD 03/28/23 1741 - EXAMINATION: CT HEAD WITHOUT CONTRAST CT CERVICAL SPINE WITHOUT CONTRAST CLINICAL INFORMATION: Fall. COMPARISON: None TECHNIQUE: Contiguous axial imaging was performed from the skull base to vertex without intravenous administration of contrast. Contiguous axial imaging was performed from the upper chest through the skull base without intravenous administration of contrast. Coronal and sagittal reformats were obtained at the acquisition workstation. This CT examination was performed using dose optimization techniques as appropriate, variously including the following: *Automated exposure control *Adjustment of mA and/or kV according to patient size (this includes techniques or standardized protocols for targeted exams where dose is matched to indication/reason for exam; i.e. extremities or head) *Use of iterative reconstruction technique DLP: 509 and 215 mGy-cm FINDINGS: Evaluation is limited due to patient's positioning and motion. Head: Small age indeterminate hypodensities in the bilateral basal ganglia, for instance measuring 7 mm in the right thalamus (7:37). Ectasia of the intracranial arteries, more prominent in the basilar artery. There is no evidence of acute intracranial hemorrhage or edematous territorial infarction. Scattered hypoattenuation in the periventricular and deep white matter are consistent with moderate microangiopathy. Millan-white matter differentiation is preserved. Proportional prominence of the ventricles and sulcal spaces. No evidence for obstructive hydrocephalus. No abnormal mass effect or midline shift. No extra-axial fluid collections. No acute soft tissue or osseous abnormalities. Multifocal partial opacification of the paranasal sinuses with air-fluid levels in the maxillary sinuses and sphenoid sinuses. The mastoids and middle ear cavities are clear. Cervical Spine: The atlantooccipital and atlantoaxial articulations remain well aligned. No evidence of acute compression deformity or traumatic subluxation. Moderate to severe multilevel cervical spondylosis with intervertebral disc height loss, osteophytes and uncovertebral/facet hypertrophy with near fused facets at several levels leading to various degrees of neural foraminal encroachment and central canal stenosis. There is no prevertebral soft tissue swelling. The thyroid gland and remaining cervical soft tissues are normal in appearance. The lung apices demonstrate no abnormalities. CT/CT cervical spine wo IV con IMPRESSION: 1. Evaluation is limited due to patient's positioning and motion. 2. Small age-indeterminate hypodensities in the bilateral basal ganglia. If an acute cerebrovascular accident is suspected, further evaluation with an MR of the brain is recommended. 3. No acute intracranial hemorrhage or edematous territorial infarction. 4. Background of chronic microangiopathy and generalized cerebral volume loss. 5. Multifocal ectasia of the intracranial arteries, more noticeable at the tip of the basilar artery. 6. No evidence of acute fracture or traumatic subluxation in the cervical spine. 7. Moderate to severe cervical spondylosis. 8. Paranasal sinus disease. Correlate clinically for acute sinusitis. Dictated By: Vandana Harrell Signed By: Electronically signed by Vandana Harrell 03/28/23 1805 - Vent. Rate: 122 BPM Atrial Rate: 122 BPM P-R Int: 196 ms QRS Dur: 080 ms QT Int: 286 ms P-R-T Axes: 084 -42 073 degrees QTc Int: 407 ms Sinus tachycardia Possible Left atrial enlargement Left axis deviation Septal infarct , age undetermined Abnormal ECG When compared with ECG of 10-JAN-2021 19:27, Premature supraventricular complexes are no longer Present Vent. rate has increased BY 59 BPM Septal infarct is now Present DD/ [id number] Radiology Impression Discussion of test interpretation with radiology: I have reviewed the radiologist's reading. Independent Historian Clinical information obtained from an independent historian. History obtained from or confirmed by: Other (patient's daughter provided additional history and confirmed the history provided by the patient.) Chronic Conditions Patient?s care impacted by: Hypertension (untreated) Critical Care Time Critical Care Time Critical Care Time: Yes Total Critical Care Time: 45 Attestation: I spent 45 minutes of Critical Care Time with this patient. This does not include time spent on separately reported billable procedures. Discharge Plan Discharge Clinical Impression: Hypoxia, Upper respiratory infection, Sinusitis Patient Disposition: Admitted As Inpatient Prescriptions: No Action metoprolol succinate 50 mg tablet extended release 24 hr 50 mg PO DAILY Qty: 90 3RF cholecalciferol (vitamin D3) 25 mcg (1,000 unit) capsule 25 mcg PO DAILY
--- NOTE | 2023-03-28 16:42 | ECG_ITS ---
Test Reason : DYSPNEA Blood Pressure : / mmHG Vent. Rate : 122 BPM Atrial Rate : 122 BPM P-R Int : 196 ms QRS Dur : 080 ms QT Int : 286 ms P-R-T Axes : 084 -42 073 degrees QTc Int : 407 ms Artifact in tracing Sinus tachycardia Possible Left atrial enlargement Left axis deviation Septal infarct , age undetermined Abnormal ECG When compared with ECG of 10-JAN-2021 19:27, Vent. rate has increased BY 59 BPM Referred By: Sharon Hankisn Electronically Signed By:LYNN CARPIO
[2023-03-28] MEDS: Albuterol Sulfate 2.5 MG, Albuterol/Iprat 2.5/0.5MG 3 ML 3 ML INHALE ×2 (16:59→20:11)
--- NOTE | 2023-03-28 17:14 | PC.NURSE ---
Pt is alert to self, hx of dementia. family member at bedside reports pt has had a cold for about 4 days with a non productive cough. Pt denies pain, does not use walker at baseline. able to follow commands. was placed on 6lt nc with o2 improvement. now is sating at 93%.
[2023-03-28 18:04] LABS: Basophils Percent Auto 0.2 % (0-2); Eosinophils Percent Auto 0.1 % (0-4); Hemoglobin 13.5 g/dl (12.0-16.0); Imm Gran Abs Auto 0.11 X10*3/uL (0.00-0.03); Imm Gran Pct Auto 0.9 % (0.0-0.4); Lymphocytes Percent Auto 8.1 % (20-40); MANUAL DIFF FLAG SCAN; Mean Corpuscular HGB Conc 33.8 g/dl (31.0-35.0); Mean Corpuscular Hemoglobin 29.5 pg (27.0-33.0); Mean Corpuscular Volume 87.3 fL (80.0-98.0); Mean Platelet Volume 9.9 fL (9.4-12.3); Monocytes Absolute Auto 2.6 X10*3/uL (0.1-1.2); Neutrophils Absolute Auto 8.7 x10*3/uL (2.0-8.3); Neutrophils Percent Auto 69.7 % (45-73); Platelet Count 159 X10*3/uL (160-400); Red Blood Count 4.58 X10*6/uL (4.20-5.50); Red Cell Distribution Width 13.1 % (11.0-16.0); SCAN SMEAR FLAG 1; White Blood Count 12.4 X10*3/uL (4.8-10.8)
[2023-03-28 18:17] LABS: INTERNATIONAL NORM RATIO 1.1 (0.9-1.1); Prothrombin Time 12.8 SEC (11.1-13.3)
[2023-03-28 18:20] LABS: Alanine Aminotransferase 39 U/L (0-31); Albumin Level 4.3 g/dL (3.5-5.0); Alkaline Phosphatase 88 U/L (39-117); Anion Gap 19 (12-20); Aspartate Amino Transferase 56 U/L (5-31); Bilirubin Total 1.6 mg/dL (0.0-1.0); Blood Urea Nitrogen 31 mg/dL (9-16); Calcium 9.7 mg/dL (8.4-10.2); Carbon Dioxide 23 mmol/L (22-29); Chloride 106 mmol/L (96-108); Creatinine Clr Calc Pharmacy 33.6; Estimated Glomerular Filt Rate 56; Glucose Random 151 mg/dL (60-115); Potassium 3.4 mmol/L (3.3-5.1); Sodium 145 mmol/L (135-145); Total Protein 7.9 g/dL (6.5-8.0)
[2023-03-28 18:22] LABS: SLIDE REVIEW VERIFIED
[2023-03-28 18:25] LABS: B Type Natriuretic Peptide 87 pg/mL (<100)
[2023-03-28 18:28] LABS: Troponin-I High Sensitivity 29.4 ng/L (<3.5-17.0)
[2023-03-28 18:42] LABS: Influenza A PCR NEGATIVE (Negative); Influenza B PCR NEGATIVE (Negative); Resp Syncy Virus RNA Qual PCR NEGATIVE (Negative); SARS COV2 PCR INHOUSE NEGATIVE (Negative)
[2023-03-28] MEDS: cefTRIAXone sodium 1 GM in 0.9 % Sodium Chloride 50 ML IV (19:36)
[2023-03-28] MEDS: methylPREDNISolone Sod Succ 125 MG/2 ML VIAL 60 MG IVPUSH (19:36)
[2023-03-28 19:57] LABS: Lactic Acid 1.6 mmol/L (0.5-2.0)
[2023-03-28] MEDS: Acetaminophen 325 MG TABLET 975 MG PO (20:58)
--- NOTE | 2023-03-28 21:30 | PC.NURSE ---
Hospitalist at bedside.
--- NOTE | 2023-03-28 22:48 | PM.IMHP ---
History of Present Illness Date of Service: 03/28/23 Attending physician on admission: Shawn Nunez Chief Complaint: Cough and falls at home for 2 days now 88 year old white female with history of dementia and hypertension (but off medications) is brought in by family for evaluation of increasing weakness, cough, shortness of breath and unwitnessed falls at home over the last 4 days. She lives at home with her daughter and son. Daughter who was at beside provided the history. She reports that patient has been coughing a lot over the last 2 days and in fact has not slept during this time. She is ambulatory and they state that they think she has been falling but none of the falls has been witnessed. Today she went to use the bathroom and could not get off the commode on her own which is new for her. She denies any symptoms at this time but she is demented and hence not reliable. Her daughter does not report any recent fevers, chills, chest pain, shortness of breath, nausea vomiting. Initial work up done in the emergency room was notable for a hypoxemia with SpO2 of 88% on room air, fever of 102.3 F, tachycardia with a heart rate of 117 beats per minute, tachypnea with a respiratory rate of 22 breaths per minute. Blood work done was notable for leukocytosis of 12.4 with a left shift, mild elevation in total bilirubin at 1.6, AST at 56 and ALT of 39. High sensitivity troponin I was also mildly elevated at 29.4 (repeat of 31). A CT scan of the head & neck did not show any acute pathology while a CT scan of the chest showed multifocal airspace opacities combination of consolidative, ground-glass and tree-in-bud with scattered pulmonary nodules suspicious for an infectious / inflammatory process such as atypical pneumonia with small airway disease. She also has a trace amount of right-sided pleural fluid and a small dilatation of the descending thoracic aorta which measures up to 4.5 cm and an age-indeterminate mild compression deformity of the T12 vertebral body. and assessment of sepsis due to multifocal pneumonia was made an she was started on intravenous ceftriaxone and azithromycin admission requested. Review of Systems Review of Systems: Yes Unobtainable due to mental condition [facility] Medical History Arthritis COVID-19 vaccine series completed Short-term memory loss Breast cancer Abnormal EKG Abnormal Holter monitor finding Hypertension Cognitive decline Family History Father No problems noted. Mother No problems noted. Surgical History H/O colonoscopy History of mastectomy Social History Household Members Other:: son Are you a primary veterinarian laboratory animal care to a significant other at home: No Do you presently have visiting nurse or other home services: No Alcohol intake: never Patient Tobacco Use Status: Former Tobacco user Quit Date: quit many years ago per son Tobacco use type: Cigarette Smoked in Last 30 Days: No Use of substances other than those prescribed or required for medical reasons: No Advance Directives: Yes Advance Directives on File: Yes Advance Directives Date on File: 05/12/21 Nutrition Risks: On aspiration precautions Meds Allergies Allergy/AdvReac Type Severity Reaction Status Date / Time Sulfa (Sulfonamide Allergy Unknown Verified 03/28/23 16:36 Antibiotics) Home Medications Medication Instructions Recorded Confirmed Last Taken Type No Known Home Meds 03/29/23 03/29/23 Unknown History Physical Exam Vital Signs and Narrative: Vital Signs: Last Vital Signs Temp 98.5 F 03/28/23 22:16 Pulse 93 03/28/23 22:16 Resp 25 H 03/28/23 22:16 BP 113/66 03/28/23 22:16 Pulse Ox 95 03/28/23 22:16 O2 Del Method Nasal Cannula 03/28/23 22:16 O2 Flow Rate 5 03/28/23 22:16 BMI result Body Mass Index 21.9 General: Well nourished elderly white female in bed. She is awake & alert but very restless. She does not appear to be in any distress Eyes: No pallor or jaundice. PERRLA, EOMI HENT: Moist oral mucus membranes. No oropharyngeal lesions. Neck: Supple. No cervical adenopathy. No JVD Cardiovascular: Regular rate and rhythm. Normal heart sounds. No murmurs, rubs or gallops. No JVD. No peripheral edema. Respiratory: Normal respiratory effort with no accessory muscle use. CTAB. Gastrointestinal: Abdomen is soft, non-tender, non-distended. NABS. No hepatosplenomegaly Extremities: No edema. No calf tenderness. Good peripheral pulses Skin: Warm/Dry. No rashes. No mottling. Capillary refill is < 2 seconds Neurological: Awake and alert. Very restless. Moves all extremities. However demented and possibly confused so comprehensive neurological exam not completed. Hematologic: No bleeding. No ecchymosis. No swollen or tender lymph nodes. Psychiatric: Cooperative. Appropriate mood and affect. Results Labs 03/29/23 06:39 03/28/23 17:57 Labs: Laboratory Results - last 24 hr 03/28/23 03/28/23 17:57 19:32 MCV 87.3 MCH 29.5 MCHC 33.8 RDW 13.1 Plt Count 159 L MPV 9.9 Immature Gran % (Auto) 0.9 H Neut % (Auto) 69.7 Lymph % (Auto) 8.1 L [place] % (Auto) 21.0 H Eos % (Auto) 0.1 Baso % (Auto) 0.2 Lymph # (Auto) 1.0 L [place] # (Auto) 2.6 H Eos # (Auto) 0.0 Baso # (Auto) 0.0 Abs Immat Gran (auto) 0.11 H Absolute Neuts (auto) 8.7 H Absolute Nucleated RBC 0.000 Nucleated RBC % (auto) 0.0 Smear Tech's Comments VERIFIED PT 12.8 INR 1.1 Anion Gap 19 Estim Creat Clear Calc 33.6 Estimated GFR 56 Random Glucose 151 H Lactic Acid 1.6 Calcium 9.7 Total Bilirubin 1.6 H AST 56 H ALT 39 H Alkaline Phosphatase 88 B-Natriuretic Peptide 87 Total Protein 7.9 Albumin 4.3 Influenza Type A (PCR) NEGATIVE Influenza Type B (PCR) NEGATIVE RSV RNA Qual (PCR) NEGATIVE SARS-CoV-2 RNA (RT-PCR) NEGATIVE ECG Attestation: I personally reviewed and interpreted this ECG as follows: ECG interpretation date: 03/29/23 ECG interpretation time: 07:40 Prior ECG tracings: available for review Interpretation: Sinus tachycardia at 122 bpm. LAD. No acute ischemic changes. Imaging Radiologist's Impressions: Impressions Chest X-Ray 03/28/23 17:34 IMPRESSION: Hyperinflated with chronic appearing changes similar to the prior study. Head & Cervical Spine CT 03/28/23 17:35 IMPRESSION: 1. Evaluation is limited due to patient's positioning and motion. 2. Small age-indeterminate hypodensities in the bilateral basal ganglia. If an acute cerebrovascular accident is suspected, further evaluation with an MR of the brain is recommended. 3. No acute intracranial hemorrhage or edematous territorial infarction. 4. Background of chronic microangiopathy and generalized cerebral volume loss. 5. Multifocal ectasia of the intracranial arteries, more noticeable at the tip of the basilar artery. 6. No evidence of acute fracture or traumatic subluxation in the cervical spine. 7. Moderate to severe cervical spondylosis. 8. Paranasal sinus disease. Correlate clinically for acute sinusitis. Assessment and Plan (1) Multifocal pneumonia: Status: Acute (2) Sepsis: Status: Acute (3) Dementia: Status: Acute Plan 88 year old white female with history of dementia and hypertension here with: 1. Sepsis - meets criteria for sepsis with fevers, tachycardia and tachypnea - due to multifocal pneumonia - admit and continue with IV Ceftriaxone and Azithromycin 2. Multifocal pneumonia - CT chest with findings concerning for multifocal pneumonia - continue with IV Ceftriaxone and Azithromycin 3. Hematuria - UA with findings of hematuria - unclear cause - monitor 4. Asthenia - reported to be weak and unable to get off commode plus has had several falls. - treat underlying pneumonia - may need PT evaluation prior to discharge if remains weak. 5. Dementia - very restless at this time - redirect and monitor - consider a sitter DVT: SC Heparin CODE STATUS: Full code Admission for at least 2 midnights for management of sepsis due to multifocal pneumonia Total time managing care of this patient today: 75 minutes. Quality Stroke Does the patient have a stroke diagnosis?: No VTE Prior VTE?: No VTE Risk Level:: Medical - moderate - high VTE Device Contraindication: Treatment Not Tolerated VTE Drug Contraindication: N/A - Med Ordered
[2023-03-28 23:06] LABS: Appearance Urine Cloudy; Color Urine Dark Yellow; Glucose Urine UA 100 mg/dL (Negative); Leukocyte Esterase Urine Trace (Negative); Nitrite Urine Negative (Negative); PH 5.5 (5.0-9.0); Specific Gravity - Urine >= 1.030 (1.005-1.025); UMIC TRIGGER UACC YES; Urine Blood Large (3+) (Negative); Urine Ketones Trace mg/dL (Negative); Urine Protein >=1000 (4+) mg/dL (Neg-Trace)
[2023-03-28] MEDS: Azithromycin 500 MG in 0.9 % Sodium Chloride 250 ML 125 MG IV (23:25)
[2023-03-28] MEDS: Dextrose 5 % and 0.9 % NaCl 1,000 ML 100 ML IVCONT (23:25)
[2023-03-28] MEDS: 0.9 % Sodium Chloride Flush 3 ML SYRINGE IVFLUSH (23:26)
[2023-03-28] MEDS: Heparin Sodium,Porcine 5,000 UNIT/ML VIAL 5000 UNIT SUBCUT (23:26)
--- NOTE | 2023-03-28 23:34 | PC.NURSE ---
Med req completed. Family at bedside report pt does not take any medications at home. aware.
[2023-03-28 23:35] LABS: Bacteria Urine Trace (None Seen); Hyaline Casts Urine 0-2 /LPF (0-2); RBC Urine >20 /HPF (0-2); Squamous Epithelial Cell Urine 0-2 /HPF (0-2); WBC Urine 0-5 /HPF (0-5)
[2023-03-29] VITALS (9 sets, daily range): BP systolic 126–169; BP diastolic 76–97; PULSE 53–92; RESP 16–22; TEMP 36.3–37.1; O2SAT 91–98
[2023-03-29 00:51] LABS: Procalcitonin 1.24 ng/mL
[2023-03-29 07:06] LABS: MANUAL DIFF FLAG NO
--- NOTE | 2023-03-29 07:11 | PHA.MEDREC ---
Pharmacy Consult ? Medication Reconciliation Pharmacy has completed the medication reconciliation. COMPLETED BY RN, (SEE NOTE) SOBIA
[2023-03-29 07:13] LABS: Basophils Percent Auto 0.3 % (0-2); Eosinophils Absolute Auto 0.2 X10*3/uL (0.0-0.4); Eosinophils Percent Auto 1.6 % (0-4); Hematocrit 38.1 % (37.0-47.0); Hemoglobin 12.5 g/dl (12.0-16.0); Imm Gran Abs Auto 0.11 X10*3/uL (0.00-0.03); Imm Gran Pct Auto 0.8 % (0.0-0.4); Lymphocytes Absolute Auto 0.7 X10*3/uL (1.2-4.9); Lymphocytes Percent Auto 4.9 % (20-40); Mean Corpuscular HGB Conc 32.8 g/dl (31.0-35.0); Mean Corpuscular Hemoglobin 29.2 pg (27.0-33.0); Mean Platelet Volume 10.6 fL (9.4-12.3); Monocytes Absolute Auto 1.1 X10*3/uL (0.1-1.2); Monocytes Percent Auto 8.2 % (2-11); Neutrophils Absolute Auto 11.4 x10*3/uL (2.0-8.3); Neutrophils Percent Auto 84.2 % (45-73); Platelet Count 163 X10*3/uL (160-400); Red Blood Count 4.28 X10*6/uL (4.20-5.50); Red Cell Distribution Width 12.9 % (11.0-16.0); White Blood Count 13.6 X10*3/uL (4.8-10.8)
--- NOTE | 2023-03-29 07:21 | P.HPHOSP_ITS ---
[facility] Medical History Arthritis COVID-19 vaccine series completed Short-term memory loss Breast cancer Abnormal EKG Abnormal Holter monitor finding Hypertension Cognitive decline Family History Father No problems noted. Mother No problems noted. Surgical History H/O colonoscopy History of mastectomy Social History Household Members Other:: son Are you a primary career development consultant to a significant other at home: No Do you presently have visiting nurse or other home services: No Alcohol intake: never Patient Tobacco Use Status: Former Tobacco user Quit Date: quit many years ago per son Tobacco use type: Cigarette Smoked in Last 30 Days: No Use of substances other than those prescribed or required for medical reasons: No Advance Directives: Yes Advance Directives on File: Yes Advance Directives Date on File: 05/12/21 Nutrition Risks: On aspiration precautions Meds Allergies Allergy/AdvReac Type Severity Reaction Status Date / Time Sulfa (Sulfonamide Allergy Unknown Verified 03/28/23 16:36 Antibiotics) Active Medications: Current Medications Acetaminophen (Acetaminophen 325 Mg Tablet) 650 mg PO Q6H PRN PRN Reason: Pain, Mild (Pain Scale 1-3) Al Hydroxide/Mg Hydroxide (Magnesium Hydrox/Alum Hydrox 30 Ml Oral.Susp) 30 ml PO Q4H PRN PRN Reason: Heartburn/Nausea Azithromycin (Azithromycin 250 Mg Tablet) 250 mg PO BEDTIME [facility] Stop: 04/02/23 20:59 Docusate Sodium (Docusate Sodium 100 Mg Capsule) 100 mg PO BID [facility] Heparin Sodium (Porcine) (Heparin Sodium,Porcine 5,000 Unit/Ml Vial) 5,000 unit SUBCUT Q12H [facility] Last Admin: 03/28/23 23:26 Dose: 5,000 unit Dextrose/Sodium Chloride (D5ns) 1,000 mls @ 100 mls/hr IVCONT .Q10H [facility] Last Admin: 03/28/23 23:25 Dose: 100 mls/hr Ceftriaxone Sodium 1 gm/ (Sodium Chloride) 50 mls @ 100 mls/hr IV Q24H [facility] Melatonin (Melatonin 3 Mg Tablet) 6 mg PO BEDTIME PRN PRN Reason: Insomnia Ondansetron HCl (Ondansetron Hcl 4 Mg/2 Ml Vial) 4 mg IVPUSH Q8H PRN PRN Reason: Nausea and Vomiting Sodium Chloride (0.9 % Sodium Chloride Flush 3 Ml Syringe) 3 ml IVFLUSH QSHIFT [facility] Last Admin: 03/28/23 23:26 Dose: 3 ml Home Medications Medication Instructions Recorded Confirmed Last Taken Type No Known Home Meds 03/29/23 03/29/23 Unknown History Physical Exam 2 Vital Signs and Narrative: Vital Signs: Last Vital Signs Temp 97.6 F 03/29/23 05:34 Pulse 74 03/29/23 05:34 Resp 17 03/29/23 05:34 BP 133/86 03/29/23 05:34 Pulse Ox 98 03/29/23 05:34 O2 Del Method Nasal Cannula 03/29/23 05:34 O2 Flow Rate 4 03/29/23 05:34 BMI result Body Mass Index 21.9 Results Labs 03/29/23 06:39 03/28/23 17:57 Labs: Laboratory Results - last 24 hr 03/28/23 03/28/23 03/28/23 17:57 19:32 22:58 MCV 87.3 MCH 29.5 MCHC 33.8 RDW 13.1 Plt Count 159 L MPV 9.9 Immature Gran % (Auto) 0.9 H Neut % (Auto) 69.7 Lymph % (Auto) 8.1 L [place] % (Auto) 21.0 H Eos % (Auto) 0.1 Baso % (Auto) 0.2 Lymph # (Auto) 1.0 L [place] # (Auto) 2.6 H Eos # (Auto) 0.0 Baso # (Auto) 0.0 Abs Immat Gran (auto) 0.11 H Absolute Neuts (auto) 8.7 H Absolute Nucleated RBC 0.000 Nucleated RBC % (auto) 0.0 Smear Tech's Comments VERIFIED PT 12.8 INR 1.1 Anion Gap 19 Estim Creat Clear Calc 33.6 Estimated GFR 56 Random Glucose 151 H Lactic Acid 1.6 Calcium 9.7 Total Bilirubin 1.6 H AST 56 H ALT 39 H Alkaline Phosphatase 88 B-Natriuretic Peptide 87 Total Protein 7.9 Albumin 4.3 Procalcitonin 1.24 Urine Color Dark Yellow Urine Appearance Cloudy Urine pH 5.5 Ur Specific [place] >= 1.030 H Urine Protein >=1000 (4+) H Urine Glucose (UA) 100 H Urine Ketones Trace Urine Blood Large (3+) H Urine Nitrite Negative Ur Leukocyte Esterase Trace H Urine RBC >20 H Urine WBC 0-5 Ur Squamous Epith Cells 0-2 Urine Bacteria Trace Hyaline Casts 0-2 Influenza Type A (PCR) NEGATIVE Influenza Type B (PCR) NEGATIVE RSV RNA Qual (PCR) NEGATIVE SARS-CoV-2 RNA (RT-PCR) NEGATIVE 03/29/23 06:39 MCV 89.0 MCH 29.2 MCHC 32.8 RDW 12.9 Plt Count 163 MPV 10.6 Immature Gran % (Auto) 0.8 H Neut % (Auto) 84.2 H Lymph % (Auto) 4.9 L [place] % (Auto) 8.2 Eos % (Auto) 1.6 Baso % (Auto) 0.3 Lymph # (Auto) 0.7 L [place] # (Auto) 1.1 Eos # (Auto) 0.2 Baso # (Auto) 0.0 Abs Immat Gran (auto) 0.11 H Absolute Neuts (auto) 11.4 H Absolute Nucleated RBC 0.000 Nucleated RBC % (auto) 0.0 Smear Tech's Comments PT INR Anion Gap Estim Creat Clear Calc Estimated GFR Random Glucose Lactic Acid Calcium Total Bilirubin AST ALT Alkaline Phosphatase B-Natriuretic Peptide Total Protein Albumin Procalcitonin Urine Color Urine Appearance Urine pH Ur Specific [place] Urine Protein Urine Glucose (UA) Urine Ketones Urine Blood Urine Nitrite Ur Leukocyte Esterase Urine RBC Urine WBC Ur Squamous Epith Cells Urine Bacteria Hyaline Casts Influenza Type A (PCR) Influenza Type B (PCR) RSV RNA Qual (PCR) SARS-CoV-2 RNA (RT-PCR) Imaging Radiologist's Impressions: Impressions Chest X-Ray 03/28/23 17:34 IMPRESSION: Hyperinflated with chronic appearing changes similar to the prior study. Cervical Spine CT 03/28/23 17:35 IMPRESSION: 1. Evaluation is limited due to patient's positioning and motion. 2. Small age-indeterminate hypodensities in the bilateral basal ganglia. If an acute cerebrovascular accident is suspected, further evaluation with an MR of the brain is recommended. 3. No acute intracranial hemorrhage or edematous territorial infarction. 4. Background of chronic microangiopathy and generalized cerebral volume loss. 5. Multifocal ectasia of the intracranial arteries, more noticeable at the tip of the basilar artery. 6. No evidence of acute fracture or traumatic subluxation in the cervical spine. 7. Moderate to severe cervical spondylosis. 8. Paranasal sinus disease. Correlate clinically for acute sinusitis. Head CT 03/28/23 17:35 IMPRESSION: 1. Evaluation is limited due to patient's positioning and motion. 2. Small age-indeterminate hypodensities in the bilateral basal ganglia. If an acute cerebrovascular accident is suspected, further evaluation with an MR of the brain is recommended. 3. No acute intracranial hemorrhage or edematous territorial infarction. 4. Background of chronic microangiopathy and generalized cerebral volume loss. 5. Multifocal ectasia of the intracranial arteries, more noticeable at the tip of the basilar artery. 6. No evidence of acute fracture or traumatic subluxation in the cervical spine. 7. Moderate to severe cervical spondylosis. 8. Paranasal sinus disease. Correlate clinically for acute sinusitis. Chest CT 03/28/23 23:20 IMPRESSION: 1. Multifocal airspace opacities combination of consolidative, groundglass and tree-in-bud with scattered pulmonary nodules suspicious for an infectious/inflammatory process such as atypical pneumonia with small airways disease. Trace amount of right-sided pleural fluid. Recommend short-term follow-up CT chest to ensure appropriate resolution and rule out underlying malignancy nodules. 2. 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 3. Mild compression deformity of the T12 vertebral body, age indeterminate. Correlate with point tenderness. Quality VTE VTE Risk Level:: Medical - moderate - high VTE Device Contraindication: Treatment Not Tolerated VTE Drug Contraindication: N/A - Med Ordered
--- NOTE | 2023-03-29 07:37 | PC.NURSE ---
PT INCONTINENT OF LARGE AMOUNT OF URINE, SHE WAS CLEANED AND REPOSITIONED. SHE IS FIDGETY AND CONFUSED BUT REDIRECTABLE. SHE HAS IV ACCESS IN THE LEFT LOWER ARM. SHE IS TAKING HER O2 OFF. PLAN FOR ADMISSION TRANSFER
[2023-03-29 07:39] LABS: Anion Gap 15 (12-20); Blood Urea Nitrogen 24 mg/dL (9-16); Calcium 8.9 mg/dL (8.4-10.2); Carbon Dioxide 21 mmol/L (22-29); Chloride 111 mmol/L (96-108); Creatinine Clr Calc Pharmacy 44.3; Estimated Glomerular Filt Rate > 60; Glucose Random 152 mg/dL (60-115); Magnesium 2.1 mg/dL (1.6-2.6); Sodium 144 mmol/L (135-145)
[2023-03-29 07:56] LABS: Thyroid Stimulating Hormone 0.82 uIU/mL (0.32-4.0)
[2023-03-29] MEDS: Doxycycline Hyclate 100 MG in 0.9 % Sodium Chloride 250 ML 166.67 MG IV ×2 (08:55→21:40)
[2023-03-29] MEDS: Docusate Sodium 100 MG CAPSULE PO ×2 (08:55→21:41)
[2023-03-29] MEDS: Dextrose 5 % and 0.9 % NaCl 1,000 ML 100 ML IVCONT ×2 (08:55→18:40)
[2023-03-29] MEDS: Potassium Chloride ER 20 MEQ TAB.ER.PRT 40 MEQ PO (08:55)
[2023-03-29] MEDS: 0.9 % Sodium Chloride Flush 3 ML SYRINGE IVFLUSH ×2 (08:56→21:40)
[2023-03-29] MEDS: Heparin Sodium,Porcine 5,000 UNIT/ML VIAL 5000 UNIT SUBCUT ×2 (10:46→21:41)
--- NOTE | 2023-03-29 11:11 | MHC.CM.PN ---
pt lives with son and dgter had no servcie ,has own ride home dc plan home no servies
--- NOTE | 2023-03-29 12:14 | HO.PM.IMPN ---
Subjective Subjective Date of Service: 03/29/23 Interval History: confused [baseline] not on O2 no dyspnea ROS limited by dementia Physical Exam Vital Signs: Vital Signs: Last Vital Signs Temp 97.5 F 03/29/23 08:00 Pulse 77 03/29/23 08:00 Resp 17 03/29/23 08:00 BP 146/89 H 03/29/23 08:00 Pulse Ox 91 L 03/29/23 08:00 O2 Del Method Room Air 03/29/23 08:00 O2 Flow Rate 4 03/29/23 05:34 BMI result Body Mass Index 21.9 Gen: in no acute distress HEENT: sclera anicteric, moist mucus membranes Neck: supple Lungs: scattered inspiratory crackles Heart: regular rate and rhythm, no murmurs Abd: soft, non-tender, non-distended Ext: no edema Skin: warm/well-perfused Neuro: alert and oriented to self, moves all extremities Psych: impaired insight Objective Data Active Medications Acetaminophen (Acetaminophen 325 Mg Tablet) 650 mg PO Q6H PRN PRN Reason: Pain, Mild (Pain Scale 1-3) Al Hydroxide/Mg Hydroxide (Magnesium Hydrox/Alum Hydrox 30 Ml Oral.Susp) 30 ml PO Q4H PRN PRN Reason: Heartburn/Nausea Docusate Sodium (Docusate Sodium 100 Mg Capsule) 100 mg PO BID [facility] Last Admin: 03/29/23 08:55 Dose: 100 mg Documented By: LIZZY Heparin Sodium (Porcine) (Heparin Sodium,Porcine 5,000 Unit/Ml Vial) 5,000 unit SUBCUT Q12H [facility] Last Admin: 03/29/23 10:46 Dose: 5,000 unit Documented By: LIZZY Dextrose/Sodium Chloride (D5ns) 1,000 mls @ 100 mls/hr IVCONT .Q10H [facility] Last Admin: 03/29/23 08:55 Dose: 100 mls/hr Documented By: LIZZY Ceftriaxone Sodium 1 gm/ (Sodium Chloride) 50 mls @ 100 mls/hr IV Q24H [facility] Doxycycline Hyclate 100 mg/ (Sodium Chloride) 250 mls @ 166.67 mls/hr IV Q12H [facility] Last Infusion: 03/29/23 10:37 Dose: Infused Documented By: LIZZY Melatonin (Melatonin 3 Mg Tablet) 6 mg PO BEDTIME PRN PRN Reason: Insomnia Ondansetron HCl (Ondansetron Hcl 4 Mg/2 Ml Vial) 4 mg IVPUSH Q8H PRN PRN Reason: Nausea and Vomiting Sodium Chloride (0.9 % Sodium Chloride Flush 3 Ml Syringe) 3 ml IVFLUSH QSHIFT [facility] Last Admin: 03/29/23 08:56 Dose: 3 ml Documented By: LIZZY Labs 03/29/23 06:39 03/29/23 06:39 Labs: Laboratory Results - last 24 hr 03/28/23 03/28/23 03/28/23 17:57 19:32 22:58 MCV 87.3 MCH 29.5 MCHC 33.8 RDW 13.1 Plt Count 159 L MPV 9.9 Immature Gran % (Auto) 0.9 H Neut % (Auto) 69.7 Lymph % (Auto) 8.1 L Yell % (Auto) 21.0 H Eos % (Auto) 0.1 Baso % (Auto) 0.2 Lymph # (Auto) 1.0 L Yell # (Auto) 2.6 H Eos # (Auto) 0.0 Baso # (Auto) 0.0 Abs Immat Gran (auto) 0.11 H Absolute Neuts (auto) 8.7 H Absolute Nucleated RBC 0.000 Nucleated RBC % (auto) 0.0 Smear Tech's Comments VERIFIED PT 12.8 INR 1.1 Anion Gap 19 Estim Creat Clear Calc 33.6 Estimated GFR 56 Random Glucose 151 H Lactic Acid 1.6 Calcium 9.7 Magnesium Total Bilirubin 1.6 H AST 56 H ALT 39 H Alkaline Phosphatase 88 B-Natriuretic Peptide 87 Total Protein 7.9 Albumin 4.3 Procalcitonin 1.24 TSH Urine Color Dark Yellow Urine Appearance Cloudy Urine pH 5.5 Ur Specific Rulo >= 1.030 H Urine Protein >=1000 (4+) H Urine Glucose (UA) 100 H Urine Ketones Trace Urine Blood Large (3+) H Urine Nitrite Negative Ur Leukocyte Esterase Trace H Urine RBC >20 H Urine WBC 0-5 Ur Squamous Epith Cells 0-2 Urine Bacteria Trace Hyaline Casts 0-2 Influenza Type A (PCR) NEGATIVE Influenza Type B (PCR) NEGATIVE RSV RNA Qual (PCR) NEGATIVE SARS-CoV-2 RNA (RT-PCR) NEGATIVE 03/29/23 06:39 MCV 89.0 MCH 29.2 MCHC 32.8 RDW 12.9 Plt Count 163 MPV 10.6 Immature Gran % (Auto) 0.8 H Neut % (Auto) 84.2 H Lymph % (Auto) 4.9 L Yell % (Auto) 8.2 Eos % (Auto) 1.6 Baso % (Auto) 0.3 Lymph # (Auto) 0.7 L Yell # (Auto) 1.1 Eos # (Auto) 0.2 Baso # (Auto) 0.0 Abs Immat Gran (auto) 0.11 H Absolute Neuts (auto) 11.4 H Absolute Nucleated RBC 0.000 Nucleated RBC % (auto) 0.0 Smear Tech's Comments PT INR Anion Gap 15 Estim Creat Clear Calc 44.3 Estimated GFR > 60 Random Glucose 152 H Lactic Acid Calcium 8.9 D Magnesium 2.1 Total Bilirubin AST ALT Alkaline Phosphatase B-Natriuretic Peptide Total Protein Albumin Procalcitonin TSH 0.82 Urine Color Urine Appearance Urine pH Ur Specific Rulo Urine Protein Urine Glucose (UA) Urine Ketones Urine Blood Urine Nitrite Ur Leukocyte Esterase Urine RBC Urine WBC Ur Squamous Epith Cells Urine Bacteria Hyaline Casts Influenza Type A (PCR) Influenza Type B (PCR) RSV RNA Qual (PCR) SARS-CoV-2 RNA (RT-PCR) Assessment and Plan (1) Sepsis: Status: Acute (2) Multifocal pneumonia: Status: Acute Plan d2 88yo F with dementia, HTN but not on medications sent in for 4d of weakness, cough, dyspnea and possible unwitnessed falls found to be septic + hypoxic with fever/tachycardia/leukocytosis sepsis due to multifocal PNA - ceftriaxone d2, change azithromycin to doxycycline, follow BCx, trend PCT, check Legionella + pneumococcal UAgs - LA normal hypoK - replete, recheck level in AM Tn-I elevation - indeterminate/flat, likely demand from sepsis microscopic hematuria - repeat UA dementia - calm, re-directable at this time, high fall risk, if develops behavioral agitation will consider sitter VTE ppx - UFH dispo - PT eval Family updated at bedside Total time managing care of this patient today: 35 minutes. Quality Stroke Does the patient have a stroke diagnosis?: No VTE Prior VTE?: No VTE Risk Level:: Medical - moderate - high VTE Device Contraindication: Treatment Not Tolerated VTE Drug Contraindication: N/A - Med Ordered
--- NOTE | 2023-03-29 13:49 | MHC.SL.SWA ---
Speech Pathologist Impression: Risk of Aspiration Due to: Lethargy Medically Fragile Neurological Condition Reduced Cognition Dysphasia Diet Status: Liquid Consistency and Strategies for Safe Swallow: Liquid Intake Recommendation: Thin Liquid Intake Strategies: Small Sips Solid Food Consistency: Dietary Recommendations: Chopped/Advanced (NDD3) Additional Modifications to Solid Foods: Recommend CONTINUE current diet of CHOPPED/ADVANCED SOLIDS (NDD3) and THIN LIQUIDS. Medications WHOLE with PUREE, as tolerated. Pt will benefit from 1:1 ASSISTANCE with meals at this time. Encourage Pt to self-feed, as tolerated. Oral Medication Intake: Whole with Puree Please contact the pharmacy regarding appropriate crushable or liquid drug formulations that are available whenever modified delivery is recommended. Compensatory Strategies and Precautions to be Taken for Safe Swallow: Sitting Upright (90 deg) Liquids from Straw Small Bites and Sips Alternate Liquids/Solids Rate of Ingestion Change Oral Check Avoid Specific Foods Supervision While Eating and Drinking for Safe Swallow: Total Supervision (1:1) Foods to Avoid: Mixed consistencies, overly difficult to chew solids. Swallowing Recommended Treatments: Compens. Strategy Educat. Recommendation for Speech: Inpatient Speech Therapy Comment: Recommend CONTINUE current diet of CHOPPED/ADVANCED SOLIDS (NDD3) and THIN LIQUIDS. Medications WHOLE with PUREE, as tolerated. Pt will benefit from 1:1 ASSISTANCE with meals at this time. Encourage Pt to self-feed, as tolerated. Timeline to reassess: PRN Cyber Security Engineer Clinican/Clinical Fellow: No Supervisory Statement: I have reviewed and agree with the student/clinical fellow's documentation: N/A Speech Language Pathologist: Jeremy Mcfarlane M.A., CCC-STORAGE BRINE WORKER
--- NOTE | 2023-03-29 13:50 | PC.NURSE ---
Pt is very agitated once family left, trying to pull at items like her IV and purwick. Pt is not redirectable. Sensory item given, ineffective as patient threw on floor multiple times. MD made aware, ordered 1:1S, house moving supervisor made aware.
[2023-03-29] MEDS: cefTRIAXone sodium 1 GM in 0.9 % Sodium Chloride 50 ML IV (18:08)
[2023-03-29] MEDS: Melatonin 3 MG TABLET 6 MG PO (22:25)
[2023-03-30] VITALS (8 sets, daily range): BP systolic 129–163; BP diastolic 78–95; PULSE 80–108; RESP 12–28; TEMP 36.2–36.6; O2SAT 92–94
[2023-03-30] MEDS: Dextrose 5 % and 0.9 % NaCl 1,000 ML 100 ML IVCONT (04:46)
[2023-03-30 06:40] LABS: Hematocrit 40.3 % (37.0-47.0); Hemoglobin 13.5 g/dl (12.0-16.0); Mean Corpuscular HGB Conc 33.5 g/dl (31.0-35.0); Mean Corpuscular Hemoglobin 29.5 pg (27.0-33.0); Mean Corpuscular Volume 88.2 fL (80.0-98.0); Mean Platelet Volume 10.5 fL (9.4-12.3); Platelet Count 226 X10*3/uL (160-400); Red Blood Count 4.57 X10*6/uL (4.20-5.50); White Blood Count 17.8 X10*3/uL (4.8-10.8)
[2023-03-30 06:59] LABS: Anion Gap 12 (12-20); Blood Urea Nitrogen 13 mg/dL (9-16); Calcium 9.3 mg/dL (8.4-10.2); Carbon Dioxide 25 mmol/L (22-29); Chloride 111 mmol/L (96-108); Creatinine Clr Calc Pharmacy 50.7; Estimated Glomerular Filt Rate > 60; Glucose Random 130 mg/dL (60-115); Potassium 2.8 mmol/L (3.3-5.1); Sodium 145 mmol/L (135-145)
[2023-03-30 08:23] LABS: Magnesium 1.8 mg/dL (1.6-2.6)
[2023-03-30] MEDS: Piperacillin Sodium/Tazobactam 3.375 GM in 0.9 % Sodium Chloride 50 ML IV ×3 (08:38→21:46)
[2023-03-30] MEDS: Potassium Chloride/H20 10 MEQ/100 ML PIGGYBACK 100 MEQ IV ×4 (08:41→12:53)
[2023-03-30] MEDS: Docusate Sodium 100 MG CAPSULE PO ×2 (08:45→21:51)
[2023-03-30] MEDS: Potassium Chloride Packet 20 MEQ PACKET 40 MEQ PO (08:45)
[2023-03-30] MEDS: 0.9 % Sodium Chloride Flush 3 ML SYRINGE IVFLUSH ×3 (08:45→23:53)
[2023-03-30] MEDS: Heparin Sodium,Porcine 5,000 UNIT/ML VIAL 5000 UNIT SUBCUT ×2 (10:20→21:51)
[2023-03-30] MEDS: Doxycycline Hyclate 100 MG in 0.9 % Sodium Chloride 250 ML 166.66 MG IV ×2 (10:20→21:52)
--- NOTE | 2023-03-30 12:29 | P.PNIM_ITS ---
Subjective Subjective Date of Service: 03/30/23 Interval History: confused coughing on 2L O2 NC Review of Systems Review of Systems: Yes Unobtainable due to mental status Physical Exam 2 Vital Signs: Vital Signs: Last Vital Signs Temp 97.9 F 03/30/23 12:00 Pulse 100 03/30/23 12:00 Resp 18 03/30/23 12:00 BP 141/88 H 03/30/23 12:00 Pulse Ox 93 03/30/23 12:00 O2 Del Method Nasal Cannula 03/30/23 12:00 O2 Flow Rate 2 03/30/23 12:00 BMI result Body Mass Index 21.9 Gen: in no acute distress HEENT: sclera anicteric, moist mucus membranes Neck: supple Lungs: scattered inspiratory crackles Heart: regular rate and rhythm, no murmurs Abd: soft, non-tender, non-distended Ext: no edema Skin: warm/well-perfused Neuro: alert and oriented to self, moves all extremities Psych: impaired insight Objective Data Active Medications Acetaminophen (Acetaminophen 325 Mg Tablet) 650 mg PO Q6H PRN PRN Reason: Pain, Mild (Pain Scale 1-3) Al Hydroxide/Mg Hydroxide (Magnesium Hydrox/Alum Hydrox 30 Ml Oral.Susp) 30 ml PO Q4H PRN PRN Reason: Heartburn/Nausea Docusate Sodium (Docusate Sodium 100 Mg Capsule) 100 mg PO BID [facility] Last Admin: 03/30/23 08:45 Dose: 100 mg Documented By: CHERRY Heparin Sodium (Porcine) (Heparin Sodium,Porcine 5,000 Unit/Ml Vial) 5,000 unit SUBCUT Q12H [facility] Last Admin: 03/30/23 10:20 Dose: 5,000 unit Documented By: CHERRY Doxycycline Hyclate 100 mg/ (Sodium Chloride) 250 mls @ 166.67 mls/hr IV Q12H [facility] Last Infusion: 03/30/23 11:58 Dose: Infused Documented By: CHERRY Piperacillin Sod/Tazobactam (Sod 3.375 gm/ Sodium Chloride) 50 mls @ 100 mls/hr IV Q6H [facility] Last Infusion: 03/30/23 09:32 Dose: Infused Documented By: CHERRY Melatonin (Melatonin 3 Mg Tablet) 6 mg PO BEDTIME PRN PRN Reason: Insomnia Last Admin: 03/29/23 22:25 Dose: 6 mg Documented By: PRAMOD Ondansetron HCl (Ondansetron Hcl 4 Mg/2 Ml Vial) 4 mg IVPUSH Q8H PRN PRN Reason: Nausea and Vomiting Sodium Chloride (0.9 % Sodium Chloride Flush 3 Ml Syringe) [address] [facility] Last Admin: 03/30/23 08:45 Dose: 3 ml Documented By: CHERRY Labs 03/30/23 06:09 03/30/23 06:09 Labs: Laboratory Results - last 24 hr 03/30/23 06:09 MCV 88.2 MCH 29.5 MCHC 33.5 RDW 13.0 Plt Count 226 D MPV 10.5 Absolute Nucleated RBC 0.000 Nucleated RBC % (auto) 0.0 Anion Gap 12 Estim Creat Clear Calc 50.7 Estimated GFR > 60 Random Glucose 130 H Calcium 9.3 Magnesium 1.8 Procalcitonin 1.70 Microbiology Microbiology Results: Microbiology 03/28/23 19:32 Blood Culture - Preliminary Blood - Venous No growth after 24 hours. 03/28/23 19:32 Blood Culture - Preliminary Blood - Venous No growth after 24 hours. Assessment and Plan (1) Sepsis: Status: Acute (2) Multifocal pneumonia: Status: Acute Plan d3 88yo F with dementia, HTN but not on medications sent in for 4d of weakness, cough, dyspnea and possible unwitnessed falls found to be septic + hypoxic with fever/tachycardia/leukocytosis sepsis due to multifocal PNA with acute hypoxic resp failure - ceftriaxone 03/28-03/30, pip-gentry 03/30- - azithromycin 03/28-03/29, doxy 03/29- - follow BCx - trend PCT - check MRSA swab - Legionella + pneumococcal UAgs pending - MEDICAL PARASITOLOGIST consultation: NDD3 solids/thin liquids - LA normal hypoK - replete IV/PO, recheck level in AM Tn-I elevation - indeterminate/flat, likely demand from sepsis microscopic hematuria - repeat UA dementia - sitter VTE ppx - UFH dispo - PT eval: STR recommended Family updated at bedside Total time managing care of this patient today: 35 minutes. Quality Stroke Does the patient have a stroke diagnosis?: No VTE Prior VTE?: No VTE Risk Level:: Medical - moderate - high VTE Device Contraindication: Treatment Not Tolerated VTE Drug Contraindication: N/A - Med Ordered
[2023-03-30 13:12] LABS: MRSA Nasal PCR NEGATIVE (Negative); SA Nasal PCR POSITIVE (Negative)
--- NOTE | 2023-03-30 14:57 | MHC.SL.DTX ---
Dysphagia Diet modifications: Last documented Solid diet consistencies: Chopped/Advanced (NDD3) Last documented Liquid consistency: Thin Last documented Medication Administration: Changes made to current diet?: Yes Liquid Consistency and Strategies: Liquid Intake Recommendation: Thin Compensatory Strategies for Safe Swallow: Small Sips Compensatory Strategies for Safe Swallow(b): Sitting Upright (90 deg) Small Bites and Sips Alternate Liquids/Solids Rate of Ingestion Change Avoid Specific Foods Solid Food Consistency: Dietary Recommendations: Chopped/Advanced (NDD3) Additional Modifications to Solids: Recommend CONTINUE current diet of CHOPPED/ADVANCED SOLIDS (NDD3) and THIN LIQUIDS. Medications WHOLE with PUREE, as tolerated. Pt will benefit from 1:1 ASSISTANCE with meals at this time. Encourage Pt to self-feed, as tolerated. Oral Medication Intake: Whole with Puree Strategies and Precautions to be Taken for Safe Swallow: Sitting Upright (90 deg) Small Bites and Sips Alternate Liquids/Solids Rate of Ingestion Change Avoid Specific Foods Supervision While Eating and/Drinking: Total Supervision (1:1) Foods to Avoid: Mixed consistencies, overly difficult to chew solids. Swallowing Recommended Treatments: Compens. Strategy Educat. Level of Impact on: Daily activities: Interpersonal interactions: Education: Employment: Community: Prognosis for Improvement: Recommendation for Speech: Inpatient Speech Therapy Comment: Recommend CONTINUE current diet of CHOPPED/ADVANCED SOLIDS (NDD3) and THIN LIQUIDS. Medications WHOLE with PUREE, as tolerated. Pt will benefit from 1:1 ASSISTANCE with meals at this time. Encourage Pt to self-feed, as tolerated. Frequency/Duration: Date Range for Service Req: Timeline to reassess: PRN Additional Comments: Treatment: Pt resting in her recliner with her Lunch tray accurate at her side. She completed <25% of her meal. Per Family, she has not eaten much since admission. On follow-up, she has not had a bowel movement either. Per RN she is on softeners and they are attempting toileting trials. Per Family, her meals are prepared in a similar way to how they adjust them at home. No further adjustments are requested. As Pt is stable with her baseline diet, no further INFORMATICS EDUCATOR intervention is required at this time. Please re-refer if status changes. Assessment: Tape Weaver Clinican/Clinical Fellow: No Supervisory Statement: I have reviewed and agree with the student/clinical fellow's documentation: N/A Speech Language Pathologist: Jeremy Mcfarlane M.A., [facility]-INFORMATICS EDUCATOR
[2023-03-30] MEDS: Lactated Ringers 1,000 ML 50 ML IVCONT (16:29)
--- NOTE | 2023-03-30 17:10 | PC.NURSE ---
patient restless,pulling on tubing,trying to get out of bed,did not sleep last night,Dr. Wong notified,patient repositioned ,checking on patient frequently
[2023-03-30] MEDS: traZODone HCL 25 MG HALFTAB 12.5 MG PO (21:51)
[2023-03-31] VITALS (10 sets, daily range): BP systolic 116–164; BP diastolic 72–98; PULSE 60–101; RESP 17–21; TEMP 36–37.1; O2SAT 91–94
[2023-03-31] MEDS: Albuterol/Iprat 2.5/0.5MG 3 ML AMPUL.NEB INHALE (01:51)
[2023-03-31] MEDS: Piperacillin Sodium/Tazobactam 3.375 GM in 0.9 % Sodium Chloride 50 ML IV ×4 (01:52→20:42)
[2023-03-31 07:21] LABS: Hematocrit 39.5 % (37.0-47.0); Hemoglobin 13.3 g/dl (12.0-16.0); Mean Corpuscular HGB Conc 33.7 g/dl (31.0-35.0); Mean Corpuscular Hemoglobin 29.5 pg (27.0-33.0); Mean Corpuscular Volume 87.6 fL (80.0-98.0); Mean Platelet Volume 10.7 fL (9.4-12.3); Platelet Count 230 X10*3/uL (160-400); Red Blood Count 4.51 X10*6/uL (4.20-5.50); Red Cell Distribution Width 13.1 % (11.0-16.0); White Blood Count 12.5 X10*3/uL (4.8-10.8)
[2023-03-31 07:37] LABS: Anion Gap 11 (12-20); Blood Urea Nitrogen 16 mg/dL (9-16); Calcium 9.1 mg/dL (8.4-10.2); Carbon Dioxide 24 mmol/L (22-29); Chloride 110 mmol/L (96-108); Creatinine Clr Calc Pharmacy 43.1; Estimated Glomerular Filt Rate > 60; Glucose Random 128 mg/dL (60-115); Potassium 3.2 mmol/L (3.3-5.1); Sodium 142 mmol/L (135-145)
[2023-03-31] MEDS: Docusate Sodium 100 MG CAPSULE PO ×2 (07:39→20:42)
[2023-03-31] MEDS: Doxycycline Hyclate 100 MG in 0.9 % Sodium Chloride 250 ML 166.66 MG IV ×2 (08:09→20:43)
[2023-03-31] MEDS: Potassium Chloride Packet 20 MEQ PACKET 40 MEQ PO (08:09)
--- NOTE | 2023-03-31 10:10 | HO.PM.IMPN ---
Subjective Subjective Date of Service: 03/31/23 Interval History: coughing on 2L O2 poor oral intake K 3.2 Review of Systems Review of Systems: Yes Unobtainable due to mental status Physical Exam Vital Signs: Vital Signs: Last Vital Signs Temp 96.8 F 03/31/23 08:08 Pulse 60 03/31/23 08:08 Resp 18 03/31/23 08:08 BP 127/89 03/31/23 08:08 Pulse Ox 94 03/31/23 08:08 O2 Del Method Nasal Cannula 03/31/23 08:08 O2 Flow Rate 2.0 03/31/23 08:08 BMI result Body Mass Index 21.9 Gen: in no acute distress HEENT: sclera anicteric, moist mucus membranes Neck: supple Lungs: scattered inspiratory crackles Heart: regular rate and rhythm, no murmurs Abd: soft, non-tender, non-distended Ext: no edema Skin: warm/well-perfused Neuro: alert and oriented to self, moves all extremities Psych: impaired insight Objective Data Active Medications Acetaminophen (Acetaminophen 325 Mg Tablet) 650 mg PO Q6H PRN PRN Reason: Pain, Mild (Pain Scale 1-3) Al Hydroxide/Mg Hydroxide (Magnesium Hydrox/Alum Hydrox 30 Ml Oral.Susp) 30 ml PO Q4H PRN PRN Reason: Heartburn/Nausea Albuterol/Ipratropium (Albuterol/Iprat 2.5/0.5mg 3 Ml Ampul.Neb) 3 ml INHALE Q4H PRN PRN Reason: Wheezing Last Admin: 03/31/23 01:51 Dose: 3 ml Documented By: MARION Docusate Sodium (Docusate Sodium 100 Mg Capsule) 100 mg PO BID [facility] Last Admin: 03/31/23 07:39 Dose: 100 mg Documented By: RAMON Heparin Sodium (Porcine) (Heparin Sodium,Porcine 5,000 Unit/Ml Vial) 5,000 unit SUBCUT Q12H [facility] Last Admin: 03/30/23 21:51 Dose: 5,000 unit Documented By: DAVID Doxycycline Hyclate 100 mg/ (Sodium Chloride) 250 mls @ 166.67 mls/hr IV Q12H [facility] Last Admin: 03/31/23 08:09 Dose: 166.66 mls/hr Documented By: RAMON Piperacillin Sod/Tazobactam (Sod 3.375 gm/ Sodium Chloride) 50 mls @ 100 mls/hr IV Q6H [facility] Last Infusion: 03/31/23 08:10 Dose: Infused Documented By: RAMON Lactated Ringer's (Lr) 1,000 mls @ 50 mls/hr IVCONT .Q20H [facility] Last Admin: 03/30/23 16:29 Dose: 50 mls/hr Documented By: DAVID Melatonin (Melatonin 3 Mg Tablet) 6 mg PO BEDTIME PRN PRN Reason: Insomnia Last Admin: 03/29/23 22:25 Dose: 6 mg Documented By: PRAMOD Ondansetron HCl (Ondansetron Hcl 4 Mg/2 Ml Vial) 4 mg IVPUSH Q8H PRN PRN Reason: Nausea and Vomiting Sodium Chloride (0.9 % Sodium Chloride Flush 3 Ml Syringe) 3 ml IVFLUSH QSHIFT [facility] Last Admin: 03/31/23 07:36 Dose: Not Given Documented By: RAMON Non-Admin Reason: IV Running Trazodone HCl (Trazodone Hcl 25 Mg Halftab) 12.5 mg PO BEDTIME [facility] Last Admin: 03/30/23 21:51 Dose: 12.5 mg Documented By: DAVID Labs 03/31/23 05:47 03/31/23 05:47 Labs: Laboratory Results - last 24 hr 03/30/23 03/31/23 11:37 05:47 MCV 87.6 MCH 29.5 MCHC 33.7 RDW 13.1 Plt Count 230 MPV 10.7 Absolute Nucleated RBC 0.000 Nucleated RBC % (auto) 0.0 Anion Gap 11 L Estim Creat Clear Calc 43.1 Estimated GFR > 60 Random Glucose 128 H Calcium 9.1 Nasal Screen MRSA (PCR) NEGATIVE Nasal S. aureus Screen POSITIVE A Nasal MRSA/S.aureus Interp SEE NOTE Microbiology Microbiology Results: Microbiology 03/28/23 19:32 Blood Culture - Preliminary Blood - Venous No growth after 48 hours. 03/28/23 19:32 Blood Culture - Preliminary Blood - Venous No growth after 48 hours. Assessment and Plan (1) Sepsis: Status: Acute (2) Multifocal pneumonia: Status: Acute Plan d4 88yo F with dementia, HTN but not on medications sent in for 4d of weakness, cough, dyspnea and possible unwitnessed falls found to be septic + hypoxic with fever/tachycardia/leukocytosis sepsis due to multifocal PNA with acute hypoxic resp failure - ceftriaxone 03/28-03/30, pip-gentry 03/30- - azithromycin 03/28-03/29, doxy 03/29- - follow BCx - trend PCT - MRSA swab positive- consult ID to see if specific anti-MRSA coverage beyond doxy is warranted - Legionella + pneumococcal UAgs pending - CLINICAL RESOURCE DIRECTOR consultation: NDD3 solids/thin liquids - [place] normal hypoK - replete PO, recheck level in AM Tn-I elevation - indeterminate/flat, likely demand from sepsis microscopic hematuria - repeat UA dementia - sitter VTE ppx - UFH dispo - PT eval: STR recommended Family updated at bedside Total time managing care of this patient today: 35 minutes. Quality Stroke Does the patient have a stroke diagnosis?: No VTE Prior VTE?: No VTE Risk Level:: Medical - moderate - high VTE Device Contraindication: Treatment Not Tolerated VTE Drug Contraindication: N/A - Med Ordered
[2023-03-31] MEDS: Lactated Ringers 1,000 ML 50 ML IVCONT (10:13)
[2023-03-31] MEDS: Heparin Sodium,Porcine 5,000 UNIT/ML VIAL 5000 UNIT SUBCUT ×2 (10:13→20:53)
--- NOTE | 2023-03-31 13:19 | MHC.CM.PN ---
EMR reviewed. Per MD rounds patient is not medically cleared d/t O2 requirements. Yahir Kasper is following. CM will continue to follow.
[2023-03-31] MEDS: 0.9 % Sodium Chloride Flush 3 ML SYRINGE IVFLUSH ×2 (16:05→23:48)
[2023-03-31] MEDS: traZODone HCL 25 MG HALFTAB 12.5 MG PO (20:42)
--- NOTE | 2023-03-31 22:35 | PC.NURSE ---
Patient more calm this evening,resting quietly ,asked for assistance to go to the bathroom,answering simple questions appropriately
[2023-04-01] VITALS (7 sets, daily range): BP systolic 123–154; BP diastolic 74–93; PULSE 76–103; RESP 17–18; TEMP 36–37; O2SAT 91–94
[2023-04-01] MEDS: Piperacillin Sodium/Tazobactam 3.375 GM in 0.9 % Sodium Chloride 50 ML IV ×4 (01:59→22:02)
[2023-04-01 06:25] LABS: Hematocrit 36.9 % (37.0-47.0); Hemoglobin 12.7 g/dl (12.0-16.0); Mean Corpuscular HGB Conc 34.4 g/dl (31.0-35.0); Mean Corpuscular Hemoglobin 29.5 pg (27.0-33.0); Mean Corpuscular Volume 85.6 fL (80.0-98.0); Mean Platelet Volume 10.2 fL (9.4-12.3); Platelet Count 213 X10*3/uL (160-400); Red Blood Count 4.31 X10*6/uL (4.20-5.50); Red Cell Distribution Width 13.1 % (11.0-16.0); White Blood Count 11.1 X10*3/uL (4.8-10.8)
[2023-04-01 06:52] LABS: Anion Gap 11 (12-20); Blood Urea Nitrogen 16 mg/dL (9-16); Calcium 8.7 mg/dL (8.4-10.2); Carbon Dioxide 25 mmol/L (22-29); Chloride 109 mmol/L (96-108); Creatinine Clr Calc Pharmacy 50.7; Estimated Glomerular Filt Rate > 60; Glucose Random 111 mg/dL (60-115); Magnesium 1.7 mg/dL (1.6-2.6); Potassium 3.2 mmol/L (3.3-5.1); Sodium 142 mmol/L (135-145)
[2023-04-01 07:08] LABS: Procalcitonin 0.52 ng/mL
[2023-04-01] MEDS: 0.9 % Sodium Chloride Flush 3 ML SYRINGE IVFLUSH ×2 (08:45→22:02)
[2023-04-01] MEDS: Docusate Sodium 100 MG CAPSULE PO (08:45)
[2023-04-01] MEDS: Doxycycline Hyclate 100 MG in 0.9 % Sodium Chloride 250 ML 166.67 MG IV ×2 (09:23→23:04)
--- NOTE | 2023-04-01 11:14 | HO.PM.IMPN ---
Subjective Subjective Date of Service: 04/01/23 Interval History: coughing on 2L O2 ROS limited by dementia Review of Systems Review of Systems: Yes Unobtainable due to mental status Physical Exam Vital Signs: Vital Signs: Last Vital Signs Temp 98.1 F 04/01/23 08:00 Pulse 89 04/01/23 10:35 Resp 18 04/01/23 08:00 BP 147/93 H 04/01/23 10:35 Pulse Ox 92 04/01/23 10:35 O2 Del Method Nasal Cannula 04/01/23 08:00 O2 Flow Rate 2.0 04/01/23 08:00 BMI result Body Mass Index 21.9 Gen: in no acute distress HEENT: sclera anicteric, moist mucus membranes Neck: supple Lungs: diminished Heart: regular rate and rhythm, no murmurs Abd: soft, non-tender, non-distended Ext: no edema Skin: warm/well-perfused Neuro: alert and oriented to self, moves all extremities Psych: impaired insight Objective Data Active Medications Acetaminophen (Acetaminophen 325 Mg Tablet) 650 mg PO Q6H PRN PRN Reason: Pain, Mild (Pain Scale 1-3) Al Hydroxide/Mg Hydroxide (Magnesium Hydrox/Alum Hydrox 30 Ml Oral.Susp) 30 ml PO Q4H PRN PRN Reason: Heartburn/Nausea Albuterol/Ipratropium (Albuterol/Iprat 2.5/0.5mg 3 Ml Ampul.Neb) 3 ml INHALE Q4H PRN PRN Reason: Wheezing Last Admin: 03/31/23 01:51 Dose: 3 ml Documented By: MARION Docusate Sodium (Docusate Sodium 100 Mg Capsule) 100 mg PO BID [facility] Last Admin: 04/01/23 08:45 Dose: 100 mg Documented By: CHERRY Heparin Sodium (Porcine) (Heparin Sodium,Porcine 5,000 Unit/Ml Vial) 5,000 unit SUBCUT Q12H [facility] Last Admin: 03/31/23 20:53 Dose: 5,000 unit Documented By: DAVID Doxycycline Hyclate 100 mg/ (Sodium Chloride) 250 mls @ 166.67 mls/hr IV Q12H [facility] Last Infusion: 04/01/23 10:58 Dose: Infused Documented By: CHERRY Piperacillin Sod/Tazobactam (Sod 3.375 gm/ Sodium Chloride) 50 mls @ 100 mls/hr IV Q6H [facility] Last Infusion: 04/01/23 09:20 Dose: Infused Documented By: CHERRY Lactated Ringer's (Lr) 1,000 mls @ 50 mls/hr IVCONT .Q20H [facility] Last Admin: 04/01/23 06:33 Dose: Not Given Documented By: KENYETTA Non-Admin Reason: IV Running Melatonin (Melatonin 3 Mg Tablet) 6 mg PO BEDTIME PRN PRN Reason: Insomnia Last Admin: 03/29/23 22:25 Dose: 6 mg Documented By: PRAMOD Ondansetron HCl (Ondansetron Hcl 4 Mg/2 Ml Vial) 4 mg IVPUSH Q8H PRN PRN Reason: Nausea and Vomiting Potassium Chloride (Potassium Chloride Packet 20 Meq Packet) 40 meq PO DAILY [facility] Last Admin: 04/01/23 08:45 Dose: 40 meq Documented By: CHERRY Sodium Chloride (0.9 % Sodium Chloride Flush 3 Ml Syringe) 3 ml IVFLUSH QSHIFT [facility] Last Admin: 04/01/23 08:45 Dose: 3 ml Documented By: CHERRY Trazodone HCl (Trazodone Hcl 25 Mg Halftab) 12.5 mg PO BEDTIME [facility] Last Admin: 03/31/23 20:42 Dose: 12.5 mg Documented By: BEIT Labs 04/01/23 06:05 04/01/23 06:05 Labs: Laboratory Results - last 24 hr 03/31/23 04/01/23 Unknown 06:05 MCV 85.6 MCH 29.5 MCHC 34.4 RDW 13.1 Plt Count 213 MPV 10.2 Absolute Nucleated RBC 0.000 Nucleated RBC % (auto) 0.0 Anion Gap 11 L Estim Creat Clear Calc 50.7 Estimated GFR > 60 Random Glucose 111 Calcium 8.7 Magnesium 1.7 Procalcitonin 0.52 Urine Color Yellow Urine Appearance Clear Urine pH 6.5 Ur Specific [place] 1.025 Urine Protein 300 (3+) H Urine Glucose (UA) Negative Urine Ketones Trace Urine Blood Trace H Urine Nitrite Negative Ur Leukocyte Esterase Negative Urine RBC 11-20 H Urine WBC 0-5 Ur Squamous Epith Cells 3-5 Urine Bacteria None Seen Hyaline Casts 3-5 Assessment and Plan (1) Sepsis: Status: Acute (2) Multifocal pneumonia: Status: Acute Plan d5 88yo F with dementia, HTN but not on medications sent in for 4d of weakness, cough, dyspnea and possible unwitnessed falls found to be septic + hypoxic with fever/tachycardia/leukocytosis sepsis due to multifocal PNA with acute hypoxic resp failure - ceftriaxone 03/28-03/30, pip-gentry 03/30- - azithromycin 03/28-03/29, doxy 03/29- - BCx negative - PCT decreasing - MRSA swab positive- discussed with ID and since she is improving, doxy is sufficient for MRSA coverage at this point - Legionella + pneumococcal UAgs pending - [employer] consultation: NDD3 solids/thin liquids - LA normal hypoK - replete PO, recheck level in AM, place on maintenance Tn-I elevation - indeterminate/flat, likely demand from sepsis microscopic hematuria - confirmed on repeat UA; consider outpt Uro evaluation dementia - sitter as needed VTE ppx - UFH dispo - PT eval: STR recommended Total time managing care of this patient today: 35 minutes. Quality Stroke Does the patient have a stroke diagnosis?: No VTE Prior VTE?: No VTE Risk Level:: Medical - moderate - high VTE Device Contraindication: Treatment Not Tolerated VTE Drug Contraindication: N/A - Med Ordered
[2023-04-02] MEDS: Piperacillin Sodium/Tazobactam 3.375 GM in 0.9 % Sodium Chloride 50 ML IV ×2 (03:24→08:48)
[2023-04-02 03:27] VITALS: BP 133/82; PULSE 83; RESP 16; TEMP 36.4; O2SAT 91
[2023-04-02 03:36] VITALS: BP 133/82; PULSE 83; RESP 16; TEMP 36.4; O2SAT 91
[2023-04-02 07:50] VITALS: BP 129/79; PULSE 82; RESP 12; TEMP 36.1; O2SAT 92
[2023-04-02] MEDS: 0.9 % Sodium Chloride Flush 3 ML SYRINGE IVFLUSH (08:49)
[2023-04-02] MEDS: Doxycycline Hyclate 100 MG in 0.9 % Sodium Chloride 250 ML 166.67 MG IV (08:49)
[2023-04-02 11:02] VITALS: BP 120/70; PULSE 85; RESP 16; O2SAT 96
--- NOTE | 2023-04-02 12:00 | MHC.CM.PN ---
Addendum entered by Sharon Deng RN 04/02/23 15:54: Auth obtained. [facility] BLS transport to [facility] [place] for STR at 6pm. , RN, facility and patient aware. Addendum entered by Sharon Deng RN 04/02/23 13:07: Bed offer received from [facility] [place]. Family accepted. [facility] going for auth. CM will continue to follow. Original Note: EMR reviewed. Per MD patient is ready for DC. Plan is STR. No bed offers at this time. Search expanded. CM will continue to follow.
--- NOTE | 2023-04-02 13:38 | HO.PM.IMPN ---
Subjective Subjective Date of Service: 04/02/23 Interval History: cough improved dyspnea improved Review of Systems Review of Systems: Yes all other systems are reviewed and are negative Physical Exam Vital Signs: Vital Signs: Last Vital Signs Temp 96.9 F 04/02/23 07:50 Pulse 85 04/02/23 11:02 Resp 16 04/02/23 11:02 BP 120/70 04/02/23 11:02 Pulse Ox 96 04/02/23 11:02 O2 Del Method Nasal Cannula 04/02/23 11:02 O2 Flow Rate 2 04/02/23 11:02 BMI result Body Mass Index 21.9 Gen: in no acute distress HEENT: sclera anicteric, moist mucus membranes Neck: supple Lungs: diminished Heart: regular rate and rhythm, no murmurs Abd: soft, non-tender, non-distended Ext: no edema Skin: warm/well-perfused Neuro: alert and oriented to self, moves all extremities Psych: impaired insight Objective Data Active Medications Acetaminophen (Acetaminophen 325 Mg Tablet) 650 mg PO Q6H PRN PRN Reason: Pain, Mild (Pain Scale 1-3) Al Hydroxide/Mg Hydroxide (Magnesium Hydrox/Alum Hydrox 30 Ml Oral.Susp) 30 ml PO Q4H PRN PRN Reason: Heartburn/Nausea Albuterol/Ipratropium (Albuterol/Iprat 2.5/0.5mg 3 Ml Ampul.Neb) 3 ml INHALE Q4H PRN PRN Reason: Wheezing Last Admin: 03/31/23 01:51 Dose: 3 ml Documented By: MARION Docusate Sodium (Docusate Sodium 100 Mg Capsule) 100 mg PO BID [facility] Last Admin: 04/02/23 08:49 Dose: 100 mg Documented By: ROSALIA Heparin Sodium (Porcine) (Heparin Sodium,Porcine 5,000 Unit/Ml Vial) 5,000 unit SUBCUT Q12H [facility] Last Admin: 04/01/23 22:03 Dose: 5,000 unit Documented By: MARIBETH Doxycycline Hyclate 100 mg/ (Sodium Chloride) 250 mls @ 166.67 mls/hr IV Q12H [facility] Last Infusion: 04/02/23 10:23 Dose: Infused Documented By: ROSALIA Piperacillin Sod/Tazobactam (Sod 3.375 gm/ Sodium Chloride) 50 mls @ 100 mls/hr IV Q6H [facility] Last Infusion: 04/02/23 09:32 Dose: Infused Documented By: ROSALIA Melatonin (Melatonin 3 Mg Tablet) 6 mg PO BEDTIME PRN PRN Reason: Insomnia Last Admin: 03/29/23 22:25 Dose: 6 mg Documented By: PRAMOD Ondansetron HCl (Ondansetron Hcl 4 Mg/2 Ml Vial) 4 mg IVPUSH Q8H PRN PRN Reason: Nausea and Vomiting Potassium Chloride (Potassium Chloride Packet 20 Meq Packet) 40 meq PO DAILY [facility] Last Admin: 04/02/23 08:49 Dose: 40 meq Documented By: ROSALIA Sodium Chloride (0.9 % Sodium Chloride Flush 3 Ml Syringe) 3 ml IVFLUSH QSHIFT [facility] Last Admin: 04/02/23 08:49 Dose: 3 ml Documented By: ROSALIA Trazodone HCl (Trazodone Hcl 25 Mg Halftab) 12.5 mg PO BEDTIME [facility] Last Admin: 04/01/23 22:03 Dose: 12.5 mg Documented By: MARIBETH Labs 04/01/23 06:05 04/02/23 06:30 Labs: Laboratory Results - last 24 hr 04/02/23 06:30 Anion Gap 12 Estim Creat Clear Calc 51.5 Estimated GFR > 60 Random Glucose 107 Calcium 8.6 Assessment and Plan (1) Sepsis: Status: Acute (2) Multifocal pneumonia: Status: Acute Plan d6 88yo F with dementia, HTN but not on medications sent in for 4d of weakness, cough, dyspnea and possible unwitnessed falls found to be septic + hypoxic with fever/tachycardia/leukocytosis sepsis due to multifocal PNA with acute hypoxic resp failure - ceftriaxone 03/28-03/30, pip-gentry 03/30- - azithromycin 03/28-03/29, doxy 03/29- - BCx negative - PCT decreased - MRSA swab positive- discussed with ID and since she is improving, doxy is sufficient for MRSA coverage at this point - Legionella + pneumococcal UAgs pending - PARBOILER consultation: NDD3 solids/thin liquids - LA normal hypoK - repleted, on maintenance KCl Tn-I elevation - indeterminate/flat, likely demand from sepsis microscopic hematuria - confirmed on repeat UA; consider outpt Uro evaluation dementia - sitter as needed VTE ppx - UFH dispo - PT eval: STR recommended, awaiting bed Total time managing care of this patient today: 35 minutes. Quality Stroke Does the patient have a stroke diagnosis?: No VTE Prior VTE?: No VTE Risk Level:: Medical - moderate - high VTE Device Contraindication: Treatment Not Tolerated VTE Drug Contraindication: N/A - Med Ordered
--- NOTE | 2023-04-02 15:41 | PM.DS ---
DS: Providers Provider Date of Service: 04/02/23 Date of admission: 03/28/23 22:32 Date of discharge: 04/02/23 Primary care physician: Radha Leblanc CNP Consults: 03/31/23 07:58 Consult to Infectious Diseases Routine Consulting Provider[place] [facility] [place] Reason for consultation: pneumonia- mrsa? DS: Diagnosis Discharge Diagnosis (1) Sepsis: Status: Acute (2) Multifocal pneumonia: Status: Acute (3) Acute respiratory failure with hypoxia: Status: Acute (4) Hypokalemia: Status: Acute DS: Summary Hospital Course Hospital Course: From the history and physical by the admitting hospitalist, Shawn Oyjessy, 03/28/23: 88 year old white female with history of dementia and hypertension (but off medications) is brought in by family for evaluation of increasing weakness, cough, shortness of breath and unwitnessed falls at home over the last 4 days. She lives at home with her daughter and son. Daughter who was at beside provided the history. She reports that patient has been coughing a lot over the last 2 days and in fact has not slept during this time. She is ambulatory and they state that they think she has been falling but none of the falls has been witnessed. Today she went to use the bathroom and could not get off the commode on her own which is new for her. She denies any symptoms at this time but she is demented and hence not reliable. Her daughter does not report any recent fevers, chills, chest pain, shortness of breath, nausea vomiting. Initial work up done in the emergency room was notable for a hypoxemia with SpO2 of 88% on room air, fever of 102.3 F, tachycardia with a heart rate of 117 beats per minute, tachypnea with a respiratory rate of 22 breaths per minute. Blood work done was notable for leukocytosis of 12.4 with a left shift, mild elevation in total bilirubin at 1.6, AST at 56 and ALT of 39. High sensitivity troponin I was also mildly elevated at 29.4 (repeat of 31). A CT scan of the head & neck did not show any acute pathology while a CT scan of the chest showed multifocal airspace opacities combination of consolidative, ground-glass and tree-in-bud with scattered pulmonary nodules suspicious for an infectious / inflammatory process such as atypical pneumonia with small airway disease. She also has a trace amount of right-sided pleural fluid and a small dilatation of the descending thoracic aorta which measures up to 4.5 cm and an age-indeterminate mild compression deformity of the T12 vertebral body. and assessment of sepsis due to multifocal pneumonia was made an she was started on intravenous ceftriaxone and azithromycin admission requested. 88yo F with dementia, HTN but not on medications who was sent in for 4d of weakness, cough, dyspnea and possible unwitnessed falls. She was found to be septic + hypoxic with fever/tachycardia/leukocytosis. Hospital course by problem: sepsis due to multifocal PNA with acute hypoxic resp failure - ceftriaxone 03/28-03/30, pip-gentry 03/30-04/02; discharged on amoxicillin-clavulanate 04/03-04/06 - azithromycin 03/28-03/29, doxycycline 03/29-04/02; discharged on doxycycline 04/02-04/06 - BCx negative - PCT decreased - MRSA swab positive- discussed with ID and since she is improving, doxycycline sufficient for MRSA coverage - Legionella + pneumococcal UAgs pending - [employer] consultation: NDD3 solids/thin liquids - lactate normal - given findings on CT, a repeat CT of the chest without contrast should be done in 6-8 weeks hypoK - repleted, placed on on maintenance KCl Tn-I elevation - indeterminate/flat, likely demand from sepsis microscopic hematuria - confirmed on repeat UA; consider outpatient urological evaluation if desired She was discharged to [facility] for short-term rehabilitation. Time Attestation Discharge coordination time: Greater than 30 minutes Quality: Safe Use of Opioids Does Pt have an Active Cancer Diagnosis on the Problem List?: No Quality: Stroke Does the patient have a stroke diagnosis?: No Physical Exam Vital Signs: Vital Signs: Last Vital Signs Temp 96.9 F 04/02/23 07:50 Pulse 85 04/02/23 11:02 Resp 16 04/02/23 11:02 BP 120/70 04/02/23 11:02 Pulse Ox 96 04/02/23 11:02 O2 Del Method Nasal Cannula 04/02/23 11:02 O2 Flow Rate 2 04/02/23 11:02 BMI result Body Mass Index 21.9 Gen: in no acute distress HEENT: sclera anicteric, moist mucus membranes Neck: supple Lungs: diminished Heart: regular rate and rhythm, no murmurs Abd: soft, non-tender, non-distended Ext: no edema Skin: warm/well-perfused Neuro: alert and oriented to self, moves all extremities Psych: impaired insight DS: Data Data Completed and Pending Completed studies during hospitalization [Text1]: Laboratory Results WBC 11.1 X10*3/uL (4.8-10.8) H 04/01/23 06:05 RBC 4.31 X10*6/uL (4.20-5.50) 04/01/23 06:05 Hgb 12.7 g/dl (12.0-16.0) 04/01/23 06:05 Hct 36.9 % (37.0-47.0) L 04/01/23 06:05 MCV 85.6 fL (80.0-98.0) 04/01/23 06:05 MCH 29.5 pg (27.0-33.0) 04/01/23 06:05 MCHC 34.4 g/dl (31.0-35.0) 04/01/23 06:05 RDW 13.1 % (11.0-16.0) 04/01/23 06:05 Plt Count 213 X10*3/uL (160-400) 04/01/23 06:05 MPV 10.2 fL (9.4-12.3) 04/01/23 06:05 Immature Gran % (Auto) 0.8 % (0.0-0.4) H 03/29/23 06:39 Neut % (Auto) 84.2 % (45-73) H 03/29/23 06:39 Lymph % (Auto) 4.9 % (20-40) L 03/29/23 06:39 [place] % (Auto) 8.2 % (2-11) 03/29/23 06:39 Eos % (Auto) 1.6 % (0-4) 03/29/23 06:39 Baso % (Auto) 0.3 % (0-2) 03/29/23 06:39 Lymph # (Auto) 0.7 X10*3/uL (1.2-4.9) L 03/29/23 06:39 [place] # (Auto) 1.1 X10*3/uL (0.1-1.2) 03/29/23 06:39 Eos # (Auto) 0.2 X10*3/uL (0.0-0.4) 03/29/23 06:39 Baso # (Auto) 0.0 X10*3/uL (0.0-0.2) 03/29/23 06:39 Abs Immat Gran (auto) 0.11 X10*3/uL (0.00-0.03) H 03/29/23 06:39 Absolute Neuts (auto) 11.4 x10*3/uL (2.0-8.3) H 03/29/23 06:39 Absolute Nucleated RBC 0.000 X10*3/uL (0.0-0.012) 04/01/23 06:05 Nucleated RBC % (auto) 0.0 /100WBC (0.0-0.2) 04/01/23 06:05 Smear Tech's Comments VERIFIED 03/28/23 17:57 PT 12.8 SEC (11.1-13.3) 03/28/23 17:57 INR 1.1 (0.9-1.1) 03/28/23 17:57 Sodium 140 mmol/L (135-145) 04/02/23 06:30 Potassium 3.3 mmol/L (3.3-5.1) 04/02/23 06:30 Chloride 107 mmol/L (96-108) 04/02/23 06:30 Carbon Dioxide 24 mmol/L (22-29) 04/02/23 06:30 Anion Gap 12 (12-20) 04/02/23 06:30 BUN 13 mg/dL (9-16) 04/02/23 06:30 Creatinine 0.62 mg/dL (0.5-1.4) 04/02/23 06:30 Estim Creat Clear Calc 51.5 04/02/23 06:30 Estimated GFR > 60 04/02/23 06:30 Random Glucose 107 mg/dL (60-115) 04/02/23 06:30 Lactic Acid 1.6 mmol/L (0.5-2.0) 03/28/23 19:32 Calcium 8.6 mg/dL (8.4-10.2) 04/02/23 06:30 Magnesium 1.7 mg/dL (1.6-2.6) 04/01/23 06:05 Total Bilirubin 1.6 mg/dL (0.0-1.0) H 03/28/23 17:57 AST 56 U/L (5-31) H 03/28/23 17:57 ALT 39 U/L (0-31) H 03/28/23 17:57 Alkaline Phosphatase 88 U/L (39-117) 03/28/23 17:57 Troponin I High Sens 31.0 ng/L (<3.5-17.0) H 03/28/23 19:32 B-Natriuretic Peptide 87 pg/mL (<100) 03/28/23 17:57 Total Protein 7.9 g/dL (6.5-8.0) 03/28/23 17:57 Albumin 4.3 g/dL (3.5-5.0) 03/28/23 17:57 Procalcitonin 0.52 ng/mL 04/01/23 06:05 TSH 0.82 uIU/mL (0.32-4.0) 03/29/23 06:39 Urine Color Yellow 03/31/23 Unknown Urine Appearance Clear 03/31/23 Unknown Urine pH 6.5 (5.0-9.0) 03/31/23 Unknown Ur Specific [place] 1.025 (1.005-1.025) 03/31/23 Unknown Urine Protein 300 (3+) mg/dL (Neg-Trace) H 03/31/23 Unknown Urine Glucose (UA) Negative mg/dL (Negative) 03/31/23 Unknown Urine Ketones Trace mg/dL (Negative) 03/31/23 Unknown Urine Blood Trace (Negative) H 03/31/23 Unknown Urine Nitrite Negative (Negative) 03/31/23 Unknown Ur Leukocyte Esterase Negative (Negative) 03/31/23 Unknown Urine RBC 11-20 /HPF (0-2) H 03/31/23 Unknown Urine WBC 0-5 /HPF (0-5) 03/31/23 Unknown Ur Squamous Epith Cells 3-5 /HPF (0-2) 03/31/23 Unknown Urine Bacteria None Seen (None Seen) 03/31/23 Unknown Hyaline Casts 3-5 /LPF (0-2) 03/31/23 Unknown Nasal Screen MRSA (PCR) NEGATIVE (Negative) 03/30/23 11:37 Nasal S. aureus Screen POSITIVE (Negative) A 03/30/23 11:37 Nasal MRSA/S.aureus Interp SEE NOTE 03/30/23 11:37 Influenza Type A (PCR) NEGATIVE (Negative) 03/28/23 17:57 Influenza Type B (PCR) NEGATIVE (Negative) 03/28/23 17:57 RSV RNA Qual (PCR) NEGATIVE (Negative) 03/28/23 17:57 SARS-CoV-2 RNA (RT-PCR) NEGATIVE (Negative) 03/28/23 17:57 Impressions Chest X-Ray 03/28/23 17:34 IMPRESSION: Hyperinflated with chronic appearing changes similar to the prior study. Cervical Spine CT 03/28/23 17:35 IMPRESSION: 1. Evaluation is limited due to patient's positioning and motion. 2. Small age-indeterminate hypodensities in the bilateral basal ganglia. If an acute cerebrovascular accident is suspected, further evaluation with an MR of the brain is recommended. 3. No acute intracranial hemorrhage or edematous territorial infarction. 4. Background of chronic microangiopathy and generalized cerebral volume loss. 5. Multifocal ectasia of the intracranial arteries, more noticeable at the tip of the basilar artery. 6. No evidence of acute fracture or traumatic subluxation in the cervical spine. 7. Moderate to severe cervical spondylosis. 8. Paranasal sinus disease. Correlate clinically for acute sinusitis. Head CT 03/28/23 17:35 IMPRESSION: 1. Evaluation is limited due to patient's positioning and motion. 2. Small age-indeterminate hypodensities in the bilateral basal ganglia. If an acute cerebrovascular accident is suspected, further evaluation with an MR of the brain is recommended. 3. No acute intracranial hemorrhage or edematous territorial infarction. 4. Background of chronic microangiopathy and generalized cerebral volume loss. 5. Multifocal ectasia of the intracranial arteries, more noticeable at the tip of the basilar artery. 6. No evidence of acute fracture or traumatic subluxation in the cervical spine. 7. Moderate to severe cervical spondylosis. 8. Paranasal sinus disease. Correlate clinically for acute sinusitis. Chest CT 03/28/23 23:20 IMPRESSION: 1. Multifocal airspace opacities combination of consolidative, groundglass and tree-in-bud with scattered pulmonary nodules suspicious for an infectious/inflammatory process such as atypical pneumonia with small airways disease. Trace amount of right-sided pleural fluid. Recommend short-term follow-up CT chest to ensure appropriate resolution and rule out underlying malignancy nodules. 2. 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 3. Mild compression deformity of the T12 vertebral body, age indeterminate. Correlate with point tenderness. Discharge Plan Discharge Anticipated Discharge Date/Time: 04/02/23 15:38 Patient Disposition: Xfer SNF Discharge Diagnosis: acute hypoxia due to pneumonia hypokalemia microscopic hematuria Referrals: Radha Leblanc TREASURY MANAGER [Primary Care Provider] - 1 Week Discharge Medications: New potassium chloride 20 mEq Packet 40 meq PO DAILY Qty: 60 0RF doxycycline monohydrate 100 mg tablet 100 mg PO BID Qty: 6 0RF amoxicillin-pot clavulanate 875-125 mg tablet 1 tab PO BID Qty: 6 0RF Discharge Orders: Discharge Order (Routine); Ordered 04/02/23 Ordered By: Krysta Wong Diet: Advance to usual diet Activity on Discharge: As tolerated Stand Alone Forms: Patient Portal Discharge page, Work/School Release Care Plan Goals: recovery from pneumonia Health Concerns: acute hypoxia due to pneumonia hypokalemia microscopic hematuria Plan of Treatment: take doxycycline monohydrate 100 mg twice daily PLUS amoxicillin-clavulanate 100 mg twice daily for 3 days wean O2 as tolerated take potassium as prescribed consider outpatient urological evaluation for microscopic hematuria if desired Please follow up with your primary care doctor within 1 week of discharge from SNF. Return to the hospital if you experience recurrent or worsening symptoms. You will need a repeat CT of the lungs in 6-8 weeks. Please see your primary care doctor to order this. Assessment: See Discharge Summary.
[2023-04-02 15:49] VITALS: BP 124/91; PULSE 91; RESP 16; TEMP 36.7; O2SAT 94
[2023-04-03 08:44] LABS: Legionella Ag Urine Not Detected (Not Detected)
[2023-04-03 21:34] LABS: Strep Pneumo Ag urine Not Detected (Not Detected)
== END 2023-04-02 19:00 | disposition skilled nursing facility (03) | DRG 720 ==
LOC: HO.ED 22:50 → HO.EDOVER 22:58 → HO.S3 03-29 06:35
PROVIDERS: Physician Assistant Medical; Registered Nurse Emergency; Admitting Provider Internal Medicine; Emergency Provider Emergency Medicine; PCP Nurse Practitioner Family; Visit Provider Family Medicine
DX: A41.9 Sepsis, unspecified organism (principal); J96.01 Acute respiratory failure with hypoxia; J18.9 Pneumonia, unspecified organism; F03.90 Unspecified dementia, unspecified severity, without behavioral disturbance, psychotic disturbance, mood disturbance, and anxiety; E87.6 Hypokalemia; R31.29 Other microscopic hematuria; Z20.822 Contact with and (suspected) exposure to COVID-19; Z87.891 Personal history of nicotine dependence
CPT/HCPCS: 0241U; 36415; 70450; 71045; 71250; 72125; 80048; 80053; 81001; 83605; 83735; 83880; 84145; 84443; 84484; 85025; 85027; 85610; 87040; 87449; 87640; 87641; 87899; 92526; 92610; 93005; 94640; 97116; 97162; 97530; 99285; J0456; J0696; J1644; J2543; J2930; J3480; J7120

== ENCOUNTER → 2023-03-28 16:42 | Outpatient (BNV) | payer OTHER, SELFPAY | PROVIDERS: Admitting Provider Internal Medicine; Emergency Provider Emergency Medicine; PCP Nurse Practitioner Family; Visit Provider Internal Medicine | DX: R00.0 Tachycardia, unspecified (principal); R94.31 Abnormal electrocardiogram [ECG] [EKG] | CPT/HCPCS: 93010 ==

== ENCOUNTER → 2023-03-28 22:32 | Outpatient (BNV) | payer OTHER, SELFPAY | PROVIDERS: Admitting Provider Internal Medicine; Emergency Provider Emergency Medicine; PCP Nurse Practitioner Family; Visit Provider Internal Medicine | DX: A41.9 Sepsis, unspecified organism (principal); J96.01 Acute respiratory failure with hypoxia; J18.9 Pneumonia, unspecified organism; F03.90 Unspecified dementia, unspecified severity, without behavioral disturbance, psychotic disturbance, mood disturbance, and anxiety | CPT/HCPCS: 99223; 99232; 99239; 99499 ==